=== PATIENT | female | born 1945 | race Caucasian/White ===

== ENCOUNTER → 2016-10-25 | Outpatient (REF) | payer MEDICARE ==
[~2016-10-25] MED LIST: AMBI10TA PO; ASPI81CH PO; COUM10TA PO; LIPI20TA PO; LISI20TA3 PO; LOVE0.4I2 SC; LOVE0.8I SC; METF1000 PO; METO50TA2 PO; NORV5TAB PO; OMEP40CA2 PO; PERCOCET PO; VITA50003 PO; WARF-21 PO; ZOLO100T PO
[2016-10-25 17:51] LABS: INR 3.09
== END ==
LOC: M LABDRAWC 16:53
PROVIDERS: ATTEND Internal Medicine Cardiovascular Disease
DX: I48.0 Paroxysmal atrial fibrillation (principal)

== ENCOUNTER → 2016-11-03 | Outpatient (REF) | payer MEDICARE ==
[2016-11-03 11:27] LABS: MEAN CORPUSCULAR HEMOGLOBIN 27.9 pg (27.0-33.0); MEAN CORPUSCULAR HGB CONC 32.3 g/dl (32.0-36.5); MEAN CORPUSCULAR VOLUME 86.3 fl (80.0-96.0); RED CELL DISTRIBUTION WIDTH 17.8 % (11.5-14.5); WHITE BLOOD COUNT 6.2 K/mm3 (4.0-10.0)
[2016-11-03 11:34] LABS: ANION GAP 8 MEQ/L (8-16); BLOOD UREA NITROGEN 14 MG/DL (7-18); CARBON DIOXIDE LEVEL 30 MEQ/L (21-32); CHLORIDE LEVEL 105 MEQ/L (98-107); GLOMERULAR FILTRATION RATE > 60.0 (>39); GLUCOSE, FASTING 149 MG/DL (83-110); PERCENT SATURATION 16.4 % (13.2-37.4); POTASSIUM SERUM 4.1 MEQ/L (3.5-5.1); SODIUM LEVEL 143 MEQ/L (136-145); TOTAL IRON BINDING CAPACITY 383 UG/DL (250-450)
== END ==
LOC: M SFHCCLAY 08:19
PROVIDERS: ATTEND Family Medicine
DX: E11.9 Type 2 diabetes mellitus without complications (principal); D50.0 Iron deficiency anemia secondary to blood loss (chronic)

== ENCOUNTER → 2016-11-18 | Outpatient (REF) | payer MEDICARE ==
[~2016-11-18] MED LIST changes: +MAGN400T5 PO; +OCUVTAB PO; +SUCR1TA PO; +TRAZ150T14 PO
[2016-11-18 12:28] LABS: INR 3.81
== END ==
LOC: M LABDRAWC 11:36
PROVIDERS: ATTEND Internal Medicine Cardiovascular Disease
DX: I48.0 Paroxysmal atrial fibrillation (principal); Z51.81 Encounter for therapeutic drug level monitoring; Z79.01 Long term (current) use of anticoagulants

== ENCOUNTER → 2016-11-18 | Outpatient (REF) | payer MEDICARE ==
[2016-11-18 12:16] LABS: MEAN CORPUSCULAR HGB CONC 33.2 g/dl (32.0-36.5); MEAN CORPUSCULAR VOLUME 87.3 fl (80.0-96.0); RED CELL DISTRIBUTION WIDTH 16.2 % (11.5-14.5); WHITE BLOOD COUNT 6.5 K/mm3 (4.0-10.0)
[2016-11-18 12:49] LABS: ANION GAP 8 MEQ/L (8-16); BLOOD UREA NITROGEN 12 MG/DL (7-18); CALCIUM LEVEL 9.2 MG/DL (8.8-10.2); CARBON DIOXIDE LEVEL 31 MEQ/L (21-32); CHLORIDE LEVEL 101 MEQ/L (98-107); CREATININE FOR GFR 0.69 MG/DL (0.55-1.02); GLOMERULAR FILTRATION RATE > 60.0 (>39); GLUCOSE, FASTING 119 MG/DL (83-110); POTASSIUM SERUM 4.4 MEQ/L (3.5-5.1); SODIUM LEVEL 140 MEQ/L (136-145)
== END ==
LOC: M SFHCCLAY 11:34
PROVIDERS: ATTEND Family Medicine
DX: Z00.00 Encounter for general adult medical examination without abnormal findings (principal); D50.0 Iron deficiency anemia secondary to blood loss (chronic); E11.9 Type 2 diabetes mellitus without complications; I48.0 Paroxysmal atrial fibrillation; Z51.81 Encounter for therapeutic drug level monitoring; Z79.01 Long term (current) use of anticoagulants

== ENCOUNTER → 2016-11-22 | Outpatient (REF) | payer MEDICARE | LOC: M SFHCCLAY 11:33 | PROVIDERS: ATTEND Family Medicine | DX: Z00.00 Encounter for general adult medical examination without abnormal findings (principal); D50.0 Iron deficiency anemia secondary to blood loss (chronic); E11.9 Type 2 diabetes mellitus without complications ==

== ENCOUNTER → 2016-11-29 | Outpatient (CLI) | payer MEDICARE ==
[~2016-11-29] VITALS: Ht 160 cm; Wt 72.6 kg
[~2016-11-29] MED LIST changes: +LIDOCAINE 2% INJ 100 MG/5 ML SDV (FOR ANES.) As Ordered ONE; +NS 1,000 ML IV SCH; +PROPOFOL 500 MG/50 ML VIAL As Ordered ONE
--- NOTE | 2016-11-29 11:06 | ROOR ---
Patient Name: Jade Rust Procedure Date: 11/29/2016 10:55 AM Date of : 1945 Age: 71 Room: [facility] Gender: Female Note Status: Finalized Procedure: Upper GI endoscopy Indications: Iron deficiency anemia, Heartburn Providers: Aniceto Allan MD Referring MD: Stephen Oden MD Requesting Provider: Medicines: Monitored Anesthesia Care Complications: No immediate complications. Procedure: Pre-Anesthesia Assessment: - The heart rate, respiratory rate, oxygen saturations, blood pressure, adequacy of pulmonary ventilation, and response to care were monitored throughout the procedure. The Endoscope was introduced through the mouth, and advanced to the second part of duodenum. The upper GI endoscopy was accomplished without difficulty. The patient tolerated the procedure well. Findings: The Z-line was variable and was found 38 cm from the incisors. No other significant abnormalities were identified in a careful examination of the stomach. The exam of the duodenum was otherwise normal. Impression: - Z-line variable, 38 cm from the incisors. - No specimens collected. - The examination was otherwise normal. Recommendation: - Patient has a contact number available for emergencies. The signs and symptoms of potential delayed complications were discussed with the patient. Return to normal activities tomorrow. Written discharge instructions were provided to the patient. - High fiber diet. - Discharge patient to home. - Continue present medications. - The findings and recommendations were discussed with the patient's family. Aniceto Allan MD Aniceto Allan MD 11/29/2016 11:06:14 AM This report has been signed electronically. Number of Addenda: 0 Note Initiated On: 11/29/2016 10:55 AM Estimated Blood Loss: Estimated blood loss: none.
--- NOTE | 2016-11-29 11:23 | ROOR ---
Patient Name: Jade Rust Procedure Date: 11/29/2016 10:56 AM Date of : 1945 Age: 71 Room: [facility] Gender: Female Note Status: Finalized Procedure: Colonoscopy to Cecum Indications: High risk colon cancer surveillance: Personal history of colonic polyps, Last colonoscopy: 2012, Last colonoscopy: 2014, Incidental - Iron deficiency anemia Providers: Aniceto Allan MD Referring MD: Stephen Oedn MD Requesting Provider: Medicines: Monitored Anesthesia Care Complications: No immediate complications. Procedure: Pre-Anesthesia Assessment: - The heart rate, respiratory rate, oxygen saturations, blood pressure, adequacy of pulmonary ventilation, and response to care were monitored throughout the procedure. The Colonoscope was introduced through the anus and advanced to the cecum, identified by appendiceal orifice and ileocecal valve. The colonoscopy was performed without difficulty. The patient tolerated the procedure well. The quality of the bowel preparation was excellent. Findings: The perianal and digital rectal examinations were normal. No other significant abnormalities were identified in a careful examination of the remainder of the colon. One small angioectasia without bleeding was found in the cecum. Impression: - One non-bleeding colonic angioectasia. - No specimens collected. - The exam was otherwise normal to the cecum. Recommendation: - Discharge patient to home. - Continue present medications. - Repeat colonoscopy in 5 years for surveillance. - Return to referring physician. - The findings and recommendations were discussed with the patient's family. Aniceto Allan MD Aniceto Allan MD 11/29/2016 11:23:31 AM This report has been signed electronically. Number of Addenda: 0 Note Initiated On: 11/29/2016 10:56 AM Estimated Blood Loss: Estimated blood loss: none.
[2016-11-29 11:42] VITALS: BP 97/63
== END ==
LOC: M OPP 10:11
PROVIDERS: ATTEND Internal Medicine Gastroenterology
DX: Z12.11 Encounter for screening for malignant neoplasm of colon (principal); Z86.010 Personal history of colon polyps; K55.20 Angiodysplasia of colon without hemorrhage; R12 Heartburn; K22.8 Other specified diseases of esophagus; D50.9 Iron deficiency anemia, unspecified; I48.91 Unspecified atrial fibrillation; I35.9 Nonrheumatic aortic valve disorder, unspecified; I05.9 Rheumatic mitral valve disease, unspecified; E11.9 Type 2 diabetes mellitus without complications; M19.90 Unspecified osteoarthritis, unspecified site; F33.9 Major depressive disorder, recurrent, unspecified; J44.9 Chronic obstructive pulmonary disease, unspecified; F17.200 Nicotine dependence, unspecified, uncomplicated; F17.228 Nicotine dependence, chewing tobacco, with other nicotine-induced disorders; Z97.2 Presence of dental prosthetic device (complete) (partial); Z79.899 Other long term (current) drug therapy; Z79.82 Long term (current) use of aspirin; Z79.84 Long term (current) use of oral hypoglycemic drugs; Z79.01 Long term (current) use of anticoagulants
CPT/HCPCS: 43235; 99156; 99157; G0105

== ENCOUNTER → 2016-12-02 | Outpatient (REF) | payer MEDICARE ==
[~2016-12-02] MED LIST changes: -LIDOCAINE 2% INJ 100 MG/5 ML SDV (FOR ANES.) As Ordered ONE; -NS 1,000 ML IV SCH; -PROPOFOL 500 MG/50 ML VIAL As Ordered ONE
[2016-12-02 19:00] LABS: INR 1.36
== END ==
LOC: M LABDRAWC 16:19
PROVIDERS: ATTEND Internal Medicine Cardiovascular Disease
DX: Z79.01 Long term (current) use of anticoagulants (principal)

== ENCOUNTER → 2016-12-14 | Outpatient (REF) | payer MEDICARE ==
[2016-12-14 18:24] LABS: INR 3.22
== END ==
LOC: M LABDRAWC 16:42
PROVIDERS: ATTEND Internal Medicine Cardiovascular Disease

== ENCOUNTER → 2017-01-06 | Outpatient (REF) | payer MEDICARE | LOC: M LABDRAWC 11:20 | PROVIDERS: ATTEND Internal Medicine Cardiovascular Disease | DX: I48.0 Paroxysmal atrial fibrillation (principal); Z51.81 Encounter for therapeutic drug level monitoring; Z79.01 Long term (current) use of anticoagulants ==

== ENCOUNTER → 2017-01-20 | Outpatient (REF) | payer MEDICARE ==
[2017-01-20 17:56] LABS: INR 2.94
== END ==
LOC: M LABDRAWC 16:35 → M LAB REF 16:35
PROVIDERS: ATTEND Internal Medicine Cardiovascular Disease
DX: I48.0 Paroxysmal atrial fibrillation (principal)

== ENCOUNTER → 2017-02-03 | Outpatient (REF) | payer MEDICARE ==
[2017-02-03 17:32] LABS: INR 3.18
== END ==
LOC: M LABDRAWC 16:20
PROVIDERS: ATTEND Internal Medicine Cardiovascular Disease
DX: I48.0 Paroxysmal atrial fibrillation (principal)

== ENCOUNTER → 2017-03-14 | Outpatient (REF) | payer MEDICARE ==
[2017-03-14 17:27] LABS: INR 3.81
== END ==
LOC: M LABDRAWC 16:22
PROVIDERS: ATTEND Internal Medicine Cardiovascular Disease
DX: I48.0 Paroxysmal atrial fibrillation (principal)

== ENCOUNTER → 2017-03-24 | Outpatient (REF) | payer MEDICARE ==
[~2017-03-24] MED LIST changes: -METF1000 PO; +METF10004 PO; -METO50TA2 PO; +METO50TA7 PO; -TRAZ150T14 PO; +TRAZ1TAB14 PO; +VITA1CAP40 PO; -VITA50003 PO
== END ==
LOC: M SFHCCLAY 10:50
PROVIDERS: ATTEND Family Medicine
DX: L85.9 Epidermal thickening, unspecified (principal); L57.0 Actinic keratosis; L90.5 Scar conditions and fibrosis of skin; L83 Acanthosis nigricans

== ENCOUNTER → 2017-03-30 | Outpatient (REF) | payer MEDICARE ==
[~2017-03-30] MED LIST changes: +METF1000 PO; -METF10004 PO; +METO50TA2 PO; -METO50TA7 PO; +TRAZ150T14 PO; -TRAZ1TAB14 PO; -VITA1CAP40 PO; +VITA50003 PO
[2017-03-30 19:20] LABS: INR 4.25
== END ==
LOC: M LABDRAWC 16:45
PROVIDERS: ATTEND Internal Medicine Cardiovascular Disease
DX: I48.0 Paroxysmal atrial fibrillation (principal)

== ENCOUNTER → 2017-04-06 | Outpatient (CLI) | payer MEDICARE ==
[~2017-04-06] MED LIST changes: -METF1000 PO; +METF10004 PO; -METO50TA2 PO; +METO50TA7 PO; -TRAZ150T14 PO; +TRAZ1TAB14 PO; +VITA1CAP40 PO; -VITA50003 PO
--- NOTE | 2017-04-06 10:46 | REP ---
Clinical: Lung screening. History of nicotine dependence. Comparison: None Technique: Axial low-dose noncontrast images from the thoracic inlet to the upper abdomen using lung screening technique. Findings: Significant postsurgical changes involving the right upper lobe and right middle lobe including elements of scarring and interstitial disease as well as partial rib resection and associated pulmonary herniation is appreciated. Subtle ground-glass opacity with interstitial changes and small density in the medial deep left lower lobe with soft tissue component measuring 12 mm identified. No further nodule or mass lesion is identified. No pleural effusion/reaction or pneumothorax. Tracheobronchial tree is patent. Mediastinum demonstrates atherosclerotic changes of the thoracic aorta and coronary arteries with cardiomegaly. Impression: Lung-RADS category 3-S. The above mentioned findings are probably chronic and benign. However no prior examinations are available for comparison and management recommendations include initial 6-month low-dose CT follow-up. Signed by Abraham Mueller MD 04/06/2017 10:38 A
== END ==
LOC: M RAD 10:16
PROVIDERS: ATTEND Family Medicine
DX: Z12.2 Encounter for screening for malignant neoplasm of respiratory organs (principal); F17.210 Nicotine dependence, cigarettes, uncomplicated; J98.4 Other disorders of lung

== ENCOUNTER → 2017-04-13 | Outpatient (REF) | payer MEDICARE ==
[2017-04-13 19:21] LABS: INR 4.13
== END ==
LOC: M LAB REF 17:01
PROVIDERS: ATTEND Internal Medicine Cardiovascular Disease
DX: I48.91 Unspecified atrial fibrillation (principal); Z51.81 Encounter for therapeutic drug level monitoring; Z79.01 Long term (current) use of anticoagulants; Z95.2 Presence of prosthetic heart valve

== ENCOUNTER → 2017-04-27 | Outpatient (REF) | payer MEDICARE ==
[2017-04-27 13:08] LABS: INR 2.91
== END ==
LOC: M LAB REF 12:22
PROVIDERS: ATTEND Internal Medicine Cardiovascular Disease
DX: I48.91 Unspecified atrial fibrillation (principal); Z79.01 Long term (current) use of anticoagulants; Z95.2 Presence of prosthetic heart valve

== ENCOUNTER → 2017-05-30 | Outpatient (REF) | payer MEDICARE ==
[2017-05-30 18:59] LABS: INR 3.83
== END ==
LOC: M LAB REF 16:45
PROVIDERS: ATTEND Internal Medicine Cardiovascular Disease
DX: Z51.81 Encounter for therapeutic drug level monitoring (principal); Z79.01 Long term (current) use of anticoagulants; I48.0 Paroxysmal atrial fibrillation

== ENCOUNTER → 2017-06-08 | Outpatient (REF) | payer MEDICARE ==
[2017-06-08 18:18] LABS: INR 3.15
== END ==
LOC: M LABDRAWC 17:02
PROVIDERS: ATTEND Internal Medicine Cardiovascular Disease
DX: Z79.01 Long term (current) use of anticoagulants (principal)

== ENCOUNTER → 2017-06-10 | Outpatient (REF) | payer MEDICARE ==
[2017-06-10 12:04] LABS: MEAN CORPUSCULAR HEMOGLOBIN 29.4 pg (27.0-33.0); MEAN CORPUSCULAR VOLUME 89.2 fl (80.0-96.0); RED CELL DISTRIBUTION WIDTH 14.6 % (11.5-14.5); WHITE BLOOD COUNT 5.7 K/mm3 (4.0-10.0)
[2017-06-10 12:17] LABS: ALT/SGPT 31 U/L (12-78); ANION GAP 8 MEQ/L (8-16); BLOOD UREA NITROGEN 13 MG/DL (7-18); CALCIUM LEVEL 9.4 MG/DL (8.8-10.2); CARBON DIOXIDE LEVEL 31 MEQ/L (21-32); CHLORIDE LEVEL 103 MEQ/L (98-107); CHOLESTEROL LEVEL 193 MG/DL (<200); CREATININE FOR GFR 0.63 MG/DL (0.55-1.02); GLOMERULAR FILTRATION RATE > 60.0 (>39); GLUCOSE, FASTING 136 MG/DL (83-110); POTASSIUM SERUM 4.6 MEQ/L (3.5-5.1); SODIUM LEVEL 142 MEQ/L (136-145); TRIGLYCERIDES LEVEL 170 MG/DL (<150)
== END ==
LOC: M SFHCCLAY 08:22
PROVIDERS: ATTEND Family Medicine
DX: E11.9 Type 2 diabetes mellitus without complications (principal); I48.2 Chronic atrial fibrillation; Z95.2 Presence of prosthetic heart valve
CPT/HCPCS: 36415; 80048; 80061; 83036; 84460; 85027; G0463

== ENCOUNTER → 2017-06-23 | Outpatient (REF) | payer MEDICARE ==
[2017-06-23 19:34] LABS: INR 3.56
== END ==
LOC: M LABDRAWC 17:56
PROVIDERS: ATTEND Internal Medicine Cardiovascular Disease
DX: I48.91 Unspecified atrial fibrillation (principal); Z51.81 Encounter for therapeutic drug level monitoring; Z79.01 Long term (current) use of anticoagulants

== ENCOUNTER → 2017-08-12 | Outpatient (CLI) | payer MEDICARE ==
--- NOTE | 2017-08-12 13:32 | REPMRS ---
Patient History The patient states she has not had a clinical breast exam in over a year. No known family history of cancer. Benign stereotactic core biopsy. Digital Woman Screen Mammo: August 12, 2017 - Exam #: [id number] Bilateral CC and MLO view(s) were taken. Technologist: Norma Bey, Technologist Prior study comparison: July 22, 2016, digital woman screen mammo performed at [facility]. March 19, 2015, digital woman screen mammo performed at [facility] to [facility]. FINDINGS: There are scattered fibroglandular densities. There has been no change in the appearance of the mammogram from the prior studies. There is a mild amount of scattered fibroglandular density which is fairly symmetric. There is no interval development of dominant mass, architectural distortion, or clustered microcalcification suggestive of malignancy. ASSESSMENT: BI-RADS/ACR category 1 mammogram. Negative. Recommendation Routine screening mammogram in 1 year (for women over age 40). This mammogram was interpreted with the aid of an FDA-approved computer-aided dectection system. Electronically Signed By: Aaron Sellers MD 08/12/17 [id number]
== END ==
LOC: M WHC 10:32
PROVIDERS: ATTEND Family Medicine
DX: Z12.31 Encounter for screening mammogram for malignant neoplasm of breast (principal)

== ENCOUNTER → 2017-08-18 | Outpatient (REF) | payer MEDICARE ==
[2017-08-18 17:52] LABS: INR 2.77
== END ==
LOC: M LAB REF 16:33 → M LABDRAWC 16:33
PROVIDERS: ATTEND Internal Medicine Cardiovascular Disease
DX: Z51.81 Encounter for therapeutic drug level monitoring (principal); Z79.01 Long term (current) use of anticoagulants; I48.91 Unspecified atrial fibrillation

== ENCOUNTER → 2017-09-15 | Outpatient (REF) | payer MEDICARE ==
[2017-09-15 18:32] LABS: INR 2.83
== END ==
LOC: M LABDRAWC 16:28
PROVIDERS: ATTEND Internal Medicine Cardiovascular Disease
DX: I48.91 Unspecified atrial fibrillation (principal); Z79.01 Long term (current) use of anticoagulants

== ENCOUNTER → 2017-10-18 | Outpatient (REF) | payer MEDICARE ==
[2017-10-18 17:54] LABS: INR 3.06
== END ==
LOC: M LABDRAWC 16:23
DX: I48.91 Unspecified atrial fibrillation (principal); Z51.81 Encounter for therapeutic drug level monitoring; Z79.01 Long term (current) use of anticoagulants

== ENCOUNTER → 2017-10-18 | Outpatient (REF) | payer MEDICARE ==
[2017-10-18 17:00] LABS: ALT/SGPT 19 U/L (12-78); CHOLESTEROL LEVEL 110 MG/DL (<200); CHOLESTEROL RISK RATIO 2.972 (<5); HDL CHOLESTEROL 37 MG/DL (>40); NON-HDL-C 73 MG/DL; TRIGLYCERIDES LEVEL 90 MG/DL (<150)
== END ==
LOC: M SFHCCLAY 10:05
DX: E78.2 Mixed hyperlipidemia (principal); I48.91 Unspecified atrial fibrillation; Z51.81 Encounter for therapeutic drug level monitoring; Z79.01 Long term (current) use of anticoagulants
CPT/HCPCS: 84460

== ENCOUNTER → 2017-11-17 | Outpatient (REF) | payer MEDICARE ==
[2017-11-17 16:53] LABS: INR 4.16; PROTHROMBIN TIME 42.4 SECONDS (12.4-14.5)
== END ==
LOC: M LABDRAWC 16:21
DX: I48.91 Unspecified atrial fibrillation (principal); Z51.81 Encounter for therapeutic drug level monitoring; Z79.01 Long term (current) use of anticoagulants
CPT/HCPCS: 85610

== ENCOUNTER → 2017-12-01 | Outpatient (REF) | payer MEDICARE ==
[2017-12-01 17:02] LABS: INR 2.99; PROTHROMBIN TIME 32.4 SECONDS (12.4-14.5)
== END ==
LOC: M LABDRAWC 16:20
DX: I48.91 Unspecified atrial fibrillation (principal)
CPT/HCPCS: 85610

== ENCOUNTER → 2017-12-26 | Outpatient (REF) | payer MEDICARE ==
[2017-12-26 17:18] LABS: INR 3.83; PROTHROMBIN TIME 39.6 SECONDS (12.4-14.5)
== END ==
LOC: M LABDRAWC 16:23
DX: I48.91 Unspecified atrial fibrillation (principal)
CPT/HCPCS: 85610

== ENCOUNTER → 2018-01-26 | Outpatient (REF) | payer MEDICARE ==
[2018-01-26 17:30] LABS: INR 2.69; PROTHROMBIN TIME 29.8 SECONDS (12.4-14.5)
== END ==
LOC: M LABDRAWC 16:41
DX: I48.91 Unspecified atrial fibrillation (principal)
CPT/HCPCS: 85610

== ENCOUNTER → 2018-02-02 | Outpatient (REF) | payer MEDICARE ==
[2018-02-02 17:53] LABS: INR 2.72
== END ==
LOC: M LABDRAWC 17:03
DX: I48.91 Unspecified atrial fibrillation (principal)
CPT/HCPCS: 85610

== ENCOUNTER → 2018-02-16 | Outpatient (REF) | payer MEDICARE ==
[2018-02-16 17:05] LABS: HEMOGLOBIN 9.6 g/dl (12.0-15.5); MEAN CORPUSCULAR HEMOGLOBIN 24.1 pg (27.0-33.0); MEAN CORPUSCULAR VOLUME 77.7 fl (80.0-96.0); PLATELET COUNT, AUTOMATED 381 10^3/uL (150-450); RED BLOOD COUNT 3.99 10^6/uL (4.00-5.40); WHITE BLOOD COUNT 6.7 10^3/uL (4.0-10.0)
[2018-02-16 17:36] LABS: ALBUMIN 3.9 GM/DL (3.2-5.2); ALBUMIN/GLOBULIN RATIO 1.18 (1.00-1.93); ALKALINE PHOSPHATASE 58 U/L (45-117); ALT/SGPT 22 U/L (12-78); ANION GAP 7 MEQ/L (8-16); AST/SGOT 14 U/L (7-37); BILIRUBIN,TOTAL 0.3 MG/DL (0.2-1.0); BLOOD UREA NITROGEN 14 MG/DL (7-18); CALCIUM LEVEL 9.2 MG/DL (8.8-10.2); CARBON DIOXIDE LEVEL 28 MEQ/L (21-32); CHLORIDE LEVEL 103 MEQ/L (98-107); CREATININE FOR GFR 0.84 MG/DL (0.55-1.30); FREE T4 1.19 NG/DL (0.76-1.46); GLOMERULAR FILTRATION RATE > 60.0 (>39); GLUCOSE, FASTING 151 MG/DL (70-100); POTASSIUM SERUM 4.3 MEQ/L (3.5-5.1); SODIUM LEVEL 138 MEQ/L (136-145); TOTAL PROTEIN 7.2 GM/DL (6.4-8.2)
== END ==
LOC: M SFHCCLAY 10:30
DX: F32.1 Major depressive disorder, single episode, moderate (principal); R53.82 Chronic fatigue, unspecified
CPT/HCPCS: 84443

== ENCOUNTER → 2018-02-20 | Outpatient (REF) | payer MEDICARE ==
[2018-02-20 16:43] LABS: IRON (FE) 26 UG/DL (50-170); PERCENT SATURATION 5.1 % (13.2-45.0); TOTAL IRON BINDING CAPACITY 511 UG/DL (250-450)
== END ==
LOC: M SFHCCLAY 11:19
DX: D50.9 Iron deficiency anemia, unspecified (principal)
CPT/HCPCS: 83550

== ENCOUNTER → 2018-02-23 | Outpatient (REF) | payer MEDICARE ==
[2018-02-23 17:28] LABS: INR 3.61; PROTHROMBIN TIME 37.8 SECONDS (12.4-14.5)
== END ==
LOC: M LABDRAWC 16:29
DX: I48.91 Unspecified atrial fibrillation (principal)
CPT/HCPCS: 85610

== ENCOUNTER → 2018-03-06 | Outpatient (REF) | payer MEDICARE ==
[2018-03-06 19:18] LABS: INR 3.18; PROTHROMBIN TIME 34.1 SECONDS (12.4-14.5)
== END ==
LOC: M LABDRAWC 16:50
DX: I48.91 Unspecified atrial fibrillation (principal)
CPT/HCPCS: 85610

== ENCOUNTER → 2018-03-06 | Outpatient (REF) | payer MEDICARE ==
[2018-03-06 17:07] LABS: HEMATOCRIT 31.5 % (36.0-47.0); HEMOGLOBIN 9.5 g/dl (12.0-15.5); MEAN CORPUSCULAR HEMOGLOBIN 23.9 pg (27.0-33.0); MEAN CORPUSCULAR HGB CONC 30.2 g/dl (32.0-36.5); MEAN CORPUSCULAR VOLUME 79.1 fl (80.0-96.0); PLATELET COUNT, AUTOMATED 358 10^3/uL (150-450); RED BLOOD COUNT 3.98 10^6/uL (4.00-5.40); RED CELL DISTRIBUTION WIDTH 18.5 % (11.5-14.5); WHITE BLOOD COUNT 7.6 10^3/uL (4.0-10.0)
[2018-03-06 17:35] LABS: IRON (FE) 62 UG/DL (50-170); PERCENT SATURATION 12.7 % (13.2-45.0); TOTAL IRON BINDING CAPACITY 488 UG/DL (250-450)
== END ==
LOC: M SFHCCLAY 10:51
DX: D50.9 Iron deficiency anemia, unspecified (principal); I48.91 Unspecified atrial fibrillation
CPT/HCPCS: 83550

== ENCOUNTER → 2018-04-10 | Outpatient (REF) | payer MEDICARE ==
[2018-04-10 17:00] LABS: INR 2.67
== END ==
LOC: M LAB REF 16:18
DX: I48.91 Unspecified atrial fibrillation (principal)
CPT/HCPCS: 85610

== ENCOUNTER → 2018-05-25 | Outpatient (REF) | payer MEDICARE ==
[2018-05-25 19:02] LABS: INR 4.81; PROTHROMBIN TIME 46.2 SECONDS (12.1-14.4)
== END ==
LOC: M LABDRAWC 16:18
DX: I48.91 Unspecified atrial fibrillation (principal)
CPT/HCPCS: 85610

== ENCOUNTER → 2018-06-12 | Outpatient (REF) | payer MEDICARE ==
[2018-06-12 11:37] LABS: HEMATOCRIT 37.7 % (36.0-47.0); HEMOGLOBIN 11.9 g/dl (12.0-15.5); MEAN CORPUSCULAR HEMOGLOBIN 25.9 pg (27.0-33.0); MEAN CORPUSCULAR HGB CONC 31.6 g/dl (32.0-36.5); MEAN CORPUSCULAR VOLUME 82.1 fl (80.0-96.0); PLATELET COUNT, AUTOMATED 295 10^3/uL (150-450); RED BLOOD COUNT 4.59 10^6/uL (4.00-5.40); RED CELL DISTRIBUTION WIDTH 19.7 % (11.5-14.5)
[2018-06-12 19:32] LABS: MALB URINE SIEMENS 34.5 MG/L
[2018-06-12 20:14] LABS: ALBUMIN 4.3 GM/DL (3.2-5.2); ALKALINE PHOSPHATASE 62 U/L (45-117); ALT/SGPT 21 U/L (12-78); ANION GAP 10 MEQ/L (8-16); AST/SGOT 18 U/L (7-37); BILIRUBIN,TOTAL 0.4 MG/DL (0.2-1.0); BLOOD UREA NITROGEN 10 MG/DL (7-18); CALCIUM LEVEL 9.4 MG/DL (8.8-10.2); CARBON DIOXIDE LEVEL 28 MEQ/L (21-32); CHLORIDE LEVEL 104 MEQ/L (98-107); CREATININE FOR GFR 0.71 MG/DL (0.55-1.30); GLOMERULAR FILTRATION RATE > 60.0 (>39); IRON (FE) 127 UG/DL (50-170); POTASSIUM SERUM 4.3 MEQ/L (3.5-5.1); SODIUM LEVEL 142 MEQ/L (136-145); TOTAL PROTEIN 7.4 GM/DL (6.4-8.2)
[2018-06-13 01:07] LABS: ESTIMATED AVERAGE GLUCOSE 154 MG/DL (60-110)
[2018-06-13 04:07] LABS: CREATININE, URINE 99.7 MG/DL
[2018-06-13 04:10] LABS: MAU/CREAT RATIO 0.3 MCG/MG (0.0-30.0)
[2018-06-13 04:25] LABS: ALBUMIN/GLOBULIN RATIO 1.39 (1.00-1.93)
[2018-06-13 04:34] LABS: GLUCOSE, FASTING 129 MG/DL (70-100)
== END ==
LOC: M SFHCCLAY 09:01
DX: J44.9 Chronic obstructive pulmonary disease, unspecified (principal); I48.2 Chronic atrial fibrillation; E11.9 Type 2 diabetes mellitus without complications; D50.0 Iron deficiency anemia secondary to blood loss (chronic)
CPT/HCPCS: 83540

== ENCOUNTER → 2018-06-16 | Outpatient (CLI) | payer MEDICARE | LOC: M RAD 10:19 | DX: Z12.2 Encounter for screening for malignant neoplasm of respiratory organs (principal); F17.210 Nicotine dependence, cigarettes, uncomplicated; J44.9 Chronic obstructive pulmonary disease, unspecified | CPT/HCPCS: G0297 ==

== ENCOUNTER → 2018-06-19 | Outpatient (REF) | payer MEDICARE ==
[2018-06-19 17:25] LABS: INR 2.79
== END ==
LOC: M LABDRAWC 16:31
DX: I48.91 Unspecified atrial fibrillation (principal)
CPT/HCPCS: 85610

== ENCOUNTER → 2018-07-18 | Outpatient (REF) | payer MEDICARE ==
[2018-07-18 18:01] LABS: INR 3.35; PROTHROMBIN TIME 34.7 SECONDS (12.1-14.4)
== END ==
LOC: M LABDRAWC 16:10
DX: I48.91 Unspecified atrial fibrillation (principal)
CPT/HCPCS: 85610

== ENCOUNTER → 2018-08-16 | Outpatient (REF) | payer MEDICARE | LOC: M LABDRAWC 16:13 | DX: Z95.2 Presence of prosthetic heart valve (principal); I48.0 Paroxysmal atrial fibrillation | CPT/HCPCS: 85610 ==

== ENCOUNTER → 2018-08-22 | Outpatient (CLI) | payer MEDICARE | LOC: M WHC 09:10 | DX: Z12.31 Encounter for screening mammogram for malignant neoplasm of breast (principal) | CPT/HCPCS: 77067 ==

== ENCOUNTER → 2018-09-07 | Outpatient (REF) | payer MEDICARE ==
[2018-09-07 17:13] LABS: INR 1.56; PROTHROMBIN TIME 18.9 SECONDS (12.1-14.4)
== END ==
LOC: M LAB REF 16:28
DX: Z95.2 Presence of prosthetic heart valve (principal); I48.0 Paroxysmal atrial fibrillation
CPT/HCPCS: 85610

== ENCOUNTER → 2018-09-14 | Outpatient (REF) | payer MEDICARE ==
[2018-09-14 18:28] LABS: INR 3.13; PROTHROMBIN TIME 32.9 SECONDS (12.1-14.4)
== END ==
LOC: M LABDRWCV 16:20
DX: I48.0 Paroxysmal atrial fibrillation (principal); Z90.2 Acquired absence of lung [part of]
CPT/HCPCS: 85610

== ENCOUNTER → 2018-10-11 | Outpatient (REF) | payer MEDICARE ==
[~2018-10-11] MED LIST changes: -VITA1CAP40 PO; +VITA50005 PO
[2018-10-11 17:45] LABS: INR 3.34; PROTHROMBIN TIME 34.7 SECONDS (12.1-14.4)
== END ==
LOC: M LABDRAWC 16:58
PROVIDERS: ATTEND Internal Medicine Cardiovascular Disease
DX: I48.0 Paroxysmal atrial fibrillation (principal); Z95.2 Presence of prosthetic heart valve

== ENCOUNTER → 2018-11-10 | Outpatient (REF) | payer MEDICARE ==
[2018-11-10 16:39] LABS: INR 2.75; PROTHROMBIN TIME 29.7 SECONDS (12.1-14.4)
== END ==
LOC: M LABDRAWC 16:05
PROVIDERS: ATTEND Internal Medicine Cardiovascular Disease
DX: Z95.2 Presence of prosthetic heart valve (principal); I48.0 Paroxysmal atrial fibrillation

== ENCOUNTER → 2018-11-10 | Outpatient (REF) | payer MEDICARE ==
[2018-11-10 16:20] LABS: HEMATOCRIT 34.8 % (36.0-47.0); HEMOGLOBIN 10.8 g/dl (12.0-15.5); MEAN CORPUSCULAR VOLUME 83.9 fl (80.0-96.0); PLATELET COUNT, AUTOMATED 308 10^3/uL (150-450); RED BLOOD COUNT 4.15 10^6/uL (4.00-5.40); WHITE BLOOD COUNT 6.2 10^3/uL (4.0-10.0)
[2018-11-10 16:54] LABS: HEMOGLOBIN A1c 7.6 %
[2018-11-10 17:02] LABS: BLOOD UREA NITROGEN 13 MG/DL (7-18); CALCIUM LEVEL 8.6 MG/DL (8.8-10.2); CARBON DIOXIDE LEVEL 31 MEQ/L (21-32); CHLORIDE LEVEL 103 MEQ/L (98-107); CREATININE FOR GFR 0.73 MG/DL (0.55-1.30); GLOMERULAR FILTRATION RATE > 60.0 (>39); GLUCOSE, FASTING 141 MG/DL (70-100); IRON (FE) 26 UG/DL (50-170); POTASSIUM SERUM 4.3 MEQ/L (3.5-5.1); SODIUM LEVEL 140 MEQ/L (136-145)
== END ==
LOC: M SFHCCLAY 10:21
PROVIDERS: ATTEND Family Medicine
DX: D50.9 Iron deficiency anemia, unspecified (principal); E11.9 Type 2 diabetes mellitus without complications; I48.0 Paroxysmal atrial fibrillation; Z95.2 Presence of prosthetic heart valve

== ENCOUNTER → 2018-12-27 | Outpatient (REF) | payer MEDICARE ==
[2018-12-27 16:57] LABS: INR 3.77; PROTHROMBIN TIME 38.1 SECONDS (12.1-14.4)
== END ==
LOC: M LABDRAWC 16:05
PROVIDERS: ATTEND Internal Medicine Cardiovascular Disease
DX: Z95.2 Presence of prosthetic heart valve (principal); I48.0 Paroxysmal atrial fibrillation

== ENCOUNTER → 2019-01-31 | Outpatient (REF) | payer MEDICARE ==
[~2019-01-31] MED LIST changes: -ASPI81CH PO; +ASPI81CH49 PO
[2019-01-31 16:58] LABS: INR 3.42; PROTHROMBIN TIME 35.3 SECONDS (12.1-14.4)
== END ==
LOC: M LABDRAWC 16:22
PROVIDERS: ATTEND Internal Medicine Cardiovascular Disease
DX: Z95.2 Presence of prosthetic heart valve (principal); I48.0 Paroxysmal atrial fibrillation

== ENCOUNTER → 2019-04-03 | Outpatient (REF) | payer MEDICARE ==
[2019-04-03 18:14] LABS: INR 3.08; PROTHROMBIN TIME 31.7 SECONDS (11.8-14.0)
== END ==
LOC: M LABDRAWC 16:11
PROVIDERS: ATTEND Internal Medicine Cardiovascular Disease
DX: Z95.2 Presence of prosthetic heart valve (principal); I48.0 Paroxysmal atrial fibrillation

== ENCOUNTER → 2019-04-23 | Outpatient (CLI) | payer MEDICARE ==
[~2019-04-23] MED LIST changes: +GASTROGRAFIN SOLUTION 30ML (Q9963) As Ordered ONE; +ISOVUE-370 76% 100ML VIAL (Q9967) As Ordered ONE; +LISI20TA20 PO; -LISI20TA3 PO; -OMEP40CA2 PO; +OMEP40CA97 PO
[2019-04-23 14:55] LABS: PROTHROMBIN TIME 59.6 SECONDS (11.8-14.0)
[2019-04-23 15:05] LABS: INR 6.77
[2019-04-23 15:17] LABS: ALBUMIN 4.1 GM/DL (3.2-5.2); ALT/SGPT 17 U/L (12-78); BILIRUBIN,TOTAL 0.8 MG/DL (0.2-1.0); BLOOD UREA NITROGEN 9 MG/DL (7-18); CALCIUM LEVEL 9.7 MG/DL (8.8-10.2); CARBON DIOXIDE LEVEL 33 MEQ/L (21-32); CHLORIDE LEVEL 95 MEQ/L (98-107); CREATININE FOR GFR 0.69 MG/DL (0.55-1.30); GLOMERULAR FILTRATION RATE > 60.0 (>39); GLUCOSE, FASTING 137 MG/DL (70-100); POTASSIUM SERUM 3.5 MEQ/L (3.5-5.1); SODIUM LEVEL 134 MEQ/L (136-145); TOTAL PROTEIN 8.5 GM/DL (6.4-8.2)
[2019-04-23 15:24] LABS: BASO % 0.3 % (0.0-1.0); EOS % 0.3 % (0.0-3.0); HEMATOCRIT 40.7 % (36.0-47.0); HEMOGLOBIN 13.8 g/dl (12.0-15.5); LYMPH # 0.7 10^3/uL (1.5-4.5); LYMPH % 5.5 % (24.0-44.0); MEAN CORPUSCULAR HEMOGLOBIN 29.9 pg (27.0-33.0); MEAN CORPUSCULAR HGB CONC 33.9 g/dl (32.0-36.5); MEAN CORPUSCULAR VOLUME 88.1 fl (80.0-96.0); MONO # 1.3 10^3/uL (0.0-0.8); NEUTROPHILS # 9.7 10^3/uL (1.8-7.7); NEUTROPHILS % 82.5 % (36.0-66.0); PLATELET COUNT, AUTOMATED 275 10^3/uL (150-450); RED BLOOD COUNT 4.62 10^6/uL (4.00-5.40); WHITE BLOOD COUNT 11.8 10^3/uL (4.0-10.0)
--- NOTE | 2019-04-23 16:50 | REP ---
CT of the abdomen and pelvis with IV and bowel contrast for right lower quadrant abdominal pain: Comparison is 01/09/2013. Pelvis: The appendix has a normal appearance. There is a hysterectomy. Vaginal cuff and adnexa are unremarkable. The bladder is unremarkable. There is no adenopathy or ascites. There is wall thickening of the sigmoid colon, compatible with colitis in the appropriate clinical setting. There is no ascites or adenopathy. Abdomen: The visualized lung orantes are unremarkable. The hepatic parenchyma is unremarkable. There is a cholecystectomy. The pancreas and spleen are unremarkable. The adrenals are unremarkable. There are two simple right renal Bosniak type 1 cysts, not significantly changed, one in the lower pole measuring 40 mm and in the upper pole measuring 21 mm. The The abdominal aorta is unremarkable except for calcified atheroma. The bowel and mesentery are unremarkable except for findings in the sigmoid colon compatible with colitis in the appropriate clinical setting. Impression: The appendix is unremarkable. The uterus, adnexa and bladder are unremarkable. There is wall thickening of the sigmoid colon compatible with colitis in the appropriate clinical setting. Cholecystectomy. Simple cysts in the right kidney. Electronically Signed by Chepe Pollard MD 04/23/2019 04:41 P
== END ==
LOC: M LAB 14:09
PROVIDERS: ATTEND Family Medicine
DX: N28.1 Cyst of kidney, acquired (principal); R10.31 Right lower quadrant pain; Z79.01 Long term (current) use of anticoagulants; Z90.49 Acquired absence of other specified parts of digestive tract
CPT/HCPCS: 36415; 74177; 80053; 85025; 85610; G0463; Q9963; Q9967

== ENCOUNTER → 2019-04-24 | Outpatient (REF) | payer MEDICARE ==
[~2019-04-24] MED LIST changes: -GASTROGRAFIN SOLUTION 30ML (Q9963) As Ordered ONE; -ISOVUE-370 76% 100ML VIAL (Q9967) As Ordered ONE; -LISI20TA20 PO; +LISI20TA3 PO; +OMEP40CA2 PO; -OMEP40CA97 PO
[2019-04-24 17:30] LABS: BASO % 0.2 % (0.0-1.0); EOS % 0.2 % (0.0-3.0); HEMATOCRIT 39.3 % (36.0-47.0); HEMOGLOBIN 13.4 g/dl (12.0-15.5); LYMPH # 0.6 10^3/uL (1.5-4.5); LYMPH % 5.3 % (24.0-44.0); MEAN CORPUSCULAR HGB CONC 34.1 g/dl (32.0-36.5); MEAN CORPUSCULAR VOLUME 88.1 fl (80.0-96.0); MONO # 1.6 10^3/uL (0.0-0.8); MONO % 13.6 % (0.0-5.0); NEUTROPHILS # 9.6 10^3/uL (1.8-7.7); NEUTROPHILS % 80.3 % (36.0-66.0); PLATELET COUNT, AUTOMATED 280 10^3/uL (150-450); RED BLOOD COUNT 4.46 10^6/uL (4.00-5.40)
[2019-04-24 17:43] LABS: ALBUMIN 3.7 GM/DL (3.2-5.2); ALT/SGPT 13 U/L (12-78); BILIRUBIN,TOTAL 0.9 MG/DL (0.2-1.0); BLOOD UREA NITROGEN 10 MG/DL (7-18); CARBON DIOXIDE LEVEL 30 MEQ/L (21-32); CHLORIDE LEVEL 93 MEQ/L (98-107); CREATININE FOR GFR 0.96 MG/DL (0.55-1.30); GLOMERULAR FILTRATION RATE > 60.0 (>39); GLUCOSE, FASTING 146 MG/DL (70-100); POTASSIUM SERUM 3.7 MEQ/L (3.5-5.1); SODIUM LEVEL 132 MEQ/L (136-145); TOTAL PROTEIN 7.2 GM/DL (6.4-8.2)
[2019-04-24 17:47] LABS: PROTHROMBIN TIME 52.6 SECONDS (11.8-14.0)
[2019-04-24 19:27] LABS: INR 5.79
== END ==
LOC: M SFHCCLAY 11:48
PROVIDERS: ATTEND Family Medicine
DX: R10.31 Right lower quadrant pain (principal); Z79.01 Long term (current) use of anticoagulants

== ENCOUNTER → 2019-04-26 | Outpatient (REF) | payer MEDICARE ==
[2019-04-26 12:07] LABS: BASO % 0.4 % (0.0-1.0); EOS # 0.2 10^3/uL (0.0-0.50); EOS % 1.8 % (0.0-3.0); HEMOGLOBIN 13.7 g/dl (12.0-15.5); LYMPH # 0.7 10^3/uL (1.5-4.5); LYMPH % 8.3 % (24.0-44.0); MEAN CORPUSCULAR HEMOGLOBIN 30.2 pg (27.0-33.0); MEAN CORPUSCULAR HGB CONC 34.3 g/dl (32.0-36.5); MEAN CORPUSCULAR VOLUME 88.3 fl (80.0-96.0); MONO # 0.9 10^3/uL (0.0-0.8); MONO % 10.2 % (0.0-5.0); NEUTROPHILS # 6.6 10^3/uL (1.8-7.7); NEUTROPHILS % 78.9 % (36.0-66.0); PLATELET COUNT, AUTOMATED 334 10^3/uL (150-450); RED BLOOD COUNT 4.53 10^6/uL (4.00-5.40); WHITE BLOOD COUNT 8.4 10^3/uL (4.0-10.0)
[2019-04-26 12:20] LABS: INR 2.35; PROTHROMBIN TIME 25.6 SECONDS (11.8-14.0)
== END ==
LOC: M SFHCCLAY 09:04
PROVIDERS: ATTEND Family Medicine
DX: K52.9 Noninfective gastroenteritis and colitis, unspecified (principal); D50.9 Iron deficiency anemia, unspecified; D68.2 Hereditary deficiency of other clotting factors

== ENCOUNTER → 2019-04-30 | Outpatient (REF) | payer MEDICARE ==
[~2019-04-30] MED LIST changes: +LISI20TA20 PO; -LISI20TA3 PO; -OMEP40CA2 PO; +OMEP40CA97 PO
[2019-04-30 17:04] LABS: BLOOD UREA NITROGEN 12 MG/DL (7-18); CALCIUM LEVEL 9.6 MG/DL (8.8-10.2); CARBON DIOXIDE LEVEL 31 MEQ/L (21-32); CHLORIDE LEVEL 99 MEQ/L (98-107); CREATININE FOR GFR 0.74 MG/DL (0.55-1.30); GLOMERULAR FILTRATION RATE > 60.0 (>39); GLUCOSE, FASTING 112 MG/DL (70-100); POTASSIUM SERUM 4.5 MEQ/L (3.5-5.1); SODIUM LEVEL 137 MEQ/L (136-145)
[2019-04-30 17:06] LABS: HEMOGLOBIN 12.7 g/dl (12.0-15.5); MEAN CORPUSCULAR HGB CONC 32.6 g/dl (32.0-36.5); PLATELET COUNT, AUTOMATED 384 10^3/uL (150-450); RED BLOOD COUNT 4.38 10^6/uL (4.00-5.40); WHITE BLOOD COUNT 7.6 10^3/uL (4.0-10.0)
[2019-04-30 17:24] LABS: INR 2.36; PROTHROMBIN TIME 25.6 SECONDS (11.8-14.0)
== END ==
LOC: M SFHCCLAY 11:15
PROVIDERS: ATTEND Family Medicine
DX: K52.9 Noninfective gastroenteritis and colitis, unspecified (principal); Z79.01 Long term (current) use of anticoagulants
CPT/HCPCS: 36415; 80048; 85027; 85610; G0463

== ENCOUNTER → 2019-05-28 | Outpatient (REF) | payer MEDICARE ==
[2019-05-28 17:43] LABS: INR 2.41; PROTHROMBIN TIME 26.1 SECONDS (11.8-14.0)
== END ==
LOC: M LABDRAWC 16:20 → M LABDRWCV 16:20
PROVIDERS: ATTEND Internal Medicine Cardiovascular Disease
DX: Z95.2 Presence of prosthetic heart valve (principal); I48.0 Paroxysmal atrial fibrillation

== ENCOUNTER → 2019-06-26 | Outpatient (REF) | payer MEDICARE ==
[~2019-06-26] MED LIST changes: +OMEP40CA2 PO; -OMEP40CA97 PO
[2019-06-26 13:25] LABS: PROTHROMBIN TIME 47.4 SECONDS (11.8-14.0)
[2019-06-26 14:16] LABS: INR 5.09
== END ==
LOC: M LABDRAWC 12:24
PROVIDERS: ATTEND Internal Medicine Cardiovascular Disease
DX: I48.0 Paroxysmal atrial fibrillation (principal); Z95.2 Presence of prosthetic heart valve

== ENCOUNTER → 2019-07-04 | Outpatient (REF) | payer MEDICARE ==
[2019-07-04 17:53] LABS: INR 3.11; PROTHROMBIN TIME 31.9 SECONDS (11.8-14.0)
== END ==
LOC: M LABDRAWC 16:31
PROVIDERS: ATTEND Internal Medicine Cardiovascular Disease
DX: Z95.2 Presence of prosthetic heart valve (principal); I48.0 Paroxysmal atrial fibrillation

== ENCOUNTER → 2019-08-02 | Outpatient (REF) | payer MEDICARE ==
[~2019-08-02] MED LIST changes: -OMEP40CA2 PO; +OMEP40CA97 PO
[2019-08-02 12:23] LABS: HEMATOCRIT 38.3 % (36.0-47.0); HEMOGLOBIN 12.1 g/dl (12.0-15.5); MEAN CORPUSCULAR HEMOGLOBIN 29.4 pg (27.0-33.0); MEAN CORPUSCULAR HGB CONC 31.6 g/dl (32.0-36.5); MEAN CORPUSCULAR VOLUME 93.2 fl (80.0-96.0); PLATELET COUNT, AUTOMATED 276 10^3/uL (150-450); RED BLOOD COUNT 4.11 10^6/uL (4.00-5.40); WHITE BLOOD COUNT 7.1 10^3/uL (4.0-10.0)
[2019-08-02 12:34] LABS: ALBUMIN 3.6 GM/DL (3.2-5.2); ALT/SGPT 23 U/L (12-78); BILIRUBIN,TOTAL 0.4 MG/DL (0.2-1.0); BLOOD UREA NITROGEN 13 MG/DL (7-18); CALCIUM LEVEL 8.9 MG/DL (8.8-10.2); CARBON DIOXIDE LEVEL 31 MEQ/L (21-32); CHLORIDE LEVEL 101 MEQ/L (98-107); GLOMERULAR FILTRATION RATE > 60.0 (>39); GLUCOSE, FASTING 179 MG/DL (70-100); POTASSIUM SERUM 4.1 MEQ/L (3.5-5.1); SODIUM LEVEL 139 MEQ/L (136-145); TOTAL PROTEIN 6.8 GM/DL (6.4-8.2)
[2019-08-02 13:26] LABS: HEMOGLOBIN A1c 7.6 %
== END ==
LOC: M SFHCCLAY 08:29
PROVIDERS: ATTEND Family Medicine
DX: J44.9 Chronic obstructive pulmonary disease, unspecified (principal); I48.20 Chronic atrial fibrillation, unspecified; Z79.01 Long term (current) use of anticoagulants; E11.9 Type 2 diabetes mellitus without complications
CPT/HCPCS: 80053; 83036; 84443; 85027; 85610; 90682; G0008; G0463

== ENCOUNTER → 2019-08-02 | Outpatient (REF) | payer MEDICARE ==
[2019-08-02 12:35] LABS: PROTHROMBIN TIME 54.5 SECONDS (11.8-14.0)
[2019-08-02 13:45] LABS: INR 6.06
== END ==
LOC: M LABDRAWC 08:34
PROVIDERS: ATTEND Internal Medicine Cardiovascular Disease
DX: I48.0 Paroxysmal atrial fibrillation (principal); Z95.2 Presence of prosthetic heart valve

== ENCOUNTER → 2019-08-06 | Outpatient (REF) | payer MEDICARE ==
[2019-08-06 13:25] LABS: INR 1.72; PROTHROMBIN TIME 19.9 SECONDS (11.8-14.0)
== END ==
LOC: M LABDRAWC 09:20
PROVIDERS: ATTEND Internal Medicine Cardiovascular Disease
DX: I48.0 Paroxysmal atrial fibrillation (principal); Z95.2 Presence of prosthetic heart valve

== ENCOUNTER → 2019-09-03 | Outpatient (REF) | payer MEDICARE ==
[2019-09-03 18:12] LABS: INR 1.56; PROTHROMBIN TIME 18.4 SECONDS (11.8-14.0)
== END ==
LOC: M LABDRAWC 16:05
PROVIDERS: ATTEND Internal Medicine Cardiovascular Disease
DX: Z95.2 Presence of prosthetic heart valve (principal); I48.0 Paroxysmal atrial fibrillation

== ENCOUNTER → 2019-09-10 | Outpatient (REF) | payer MEDICARE ==
[2019-09-10 16:36] LABS: INR 2.87
== END ==
LOC: M LABDRAWC 16:05
PROVIDERS: ATTEND Internal Medicine Cardiovascular Disease
DX: I10 Essential (primary) hypertension (principal); E11.9 Type 2 diabetes mellitus without complications; E78.5 Hyperlipidemia, unspecified; Z79.01 Long term (current) use of anticoagulants; Z79.82 Long term (current) use of aspirin; Z79.899 Other long term (current) drug therapy

== ENCOUNTER → 2019-09-24 | Outpatient (REF) | payer MEDICARE ==
[2019-09-24 17:40] LABS: INR 3.24
== END ==
LOC: M LABDRAWC 16:33
PROVIDERS: ATTEND Internal Medicine Cardiovascular Disease
DX: Z95.2 Presence of prosthetic heart valve (principal); I48.0 Paroxysmal atrial fibrillation

== ENCOUNTER → 2019-10-08 | Outpatient (REF) | payer MEDICARE ==
[2019-10-08 17:12] LABS: INR 2.85; PROTHROMBIN TIME 29.8 SECONDS (11.8-14.0)
== END ==
LOC: M LABDRAWC 16:21
PROVIDERS: ATTEND Internal Medicine Cardiovascular Disease
DX: Z95.2 Presence of prosthetic heart valve (principal); I48.0 Paroxysmal atrial fibrillation

== ENCOUNTER → 2019-10-30 | Outpatient (REF) | payer MEDICARE ==
[2019-10-30 17:52] LABS: INR 2.89; PROTHROMBIN TIME 30.2 SECONDS (11.8-14.0)
== END ==
LOC: M LABDRAWC 16:29
PROVIDERS: ATTEND Internal Medicine Cardiovascular Disease
DX: I48.0 Paroxysmal atrial fibrillation (principal); Z95.2 Presence of prosthetic heart valve

== ENCOUNTER → 2019-11-22 | Outpatient (REF) | payer MEDICARE ==
[2019-11-22 16:43] LABS: CHOLESTEROL RISK RATIO 3.023 (<5)
== END ==
LOC: M LABDRAWC 16:17
PROVIDERS: ATTEND Nurse Practitioner Family
DX: E78.49 Other hyperlipidemia (principal); I48.0 Paroxysmal atrial fibrillation; Z95.2 Presence of prosthetic heart valve

== ENCOUNTER → 2019-11-22 | Outpatient (REF) | payer MEDICARE ==
[2019-11-22 16:47] LABS: INR 2.06
== END ==
LOC: M LABDRAWC 16:18
PROVIDERS: ATTEND Internal Medicine Cardiovascular Disease
DX: I48.0 Paroxysmal atrial fibrillation (principal); Z95.2 Presence of prosthetic heart valve

== ENCOUNTER → 2019-12-04 | Outpatient (REF) | payer MEDICARE ==
[2019-12-04 17:19] LABS: INR 2.63
== END ==
LOC: M LABDRAWC 16:02
PROVIDERS: ATTEND Internal Medicine Cardiovascular Disease
DX: Z95.2 Presence of prosthetic heart valve (principal); I48.0 Paroxysmal atrial fibrillation

== ENCOUNTER → 2020-01-01 | Outpatient (REF) | payer MEDICARE ==
[2020-01-01 16:31] LABS: INR 2.41; PROTHROMBIN TIME 26.1 SECONDS (11.8-14.0)
== END ==
LOC: M LABDRAWC 15:58
PROVIDERS: ATTEND Internal Medicine Cardiovascular Disease
DX: Z95.2 Presence of prosthetic heart valve (principal); I48.0 Paroxysmal atrial fibrillation

== ENCOUNTER → 2020-01-17 | Outpatient (REF) | payer MEDICARE ==
[2020-01-17 16:45] LABS: INR 2.56; PROTHROMBIN TIME 27.4 SECONDS (11.8-14.0)
== END ==
LOC: M LABDRAWC 15:55
PROVIDERS: ATTEND Internal Medicine Cardiovascular Disease
DX: Z95.2 Presence of prosthetic heart valve (principal); I48.0 Paroxysmal atrial fibrillation

== ENCOUNTER → 2020-02-07 | Outpatient (REF) | payer MEDICARE ==
[2020-02-07 16:56] LABS: INR 2.47; PROTHROMBIN TIME 26.6 SECONDS (11.8-14.0)
== END ==
LOC: M LABDRAWC 15:51
PROVIDERS: ATTEND Internal Medicine Cardiovascular Disease
DX: I48.91 Unspecified atrial fibrillation (principal)

== ENCOUNTER → 2020-02-14 | Outpatient (REF) | payer MEDICARE ==
[2020-02-14 16:44] LABS: INR 2.53; PROTHROMBIN TIME 27.1 SECONDS (11.8-14.0)
== END ==
LOC: M LABDRAWC 15:50
PROVIDERS: ATTEND Internal Medicine Cardiovascular Disease
DX: I48.91 Unspecified atrial fibrillation (principal)

== ENCOUNTER → 2020-02-21 | Outpatient (REF) | payer MEDICARE ==
[2020-02-21 12:12] LABS: BLOOD UREA NITROGEN 13 MG/DL (7-18); CARBON DIOXIDE LEVEL 32 MEQ/L (21-32); CHLORIDE LEVEL 102 MEQ/L (98-107); CREATININE FOR GFR 0.81 MG/DL (0.55-1.30); GLOMERULAR FILTRATION RATE > 60.0 (>39); GLUCOSE, FASTING 139 MG/DL (70-100); SODIUM LEVEL 139 MEQ/L (136-145)
[2020-02-21 13:36] LABS: HEMOGLOBIN A1c 6.8 %
== END ==
LOC: M SFHCCLAY 08:29
PROVIDERS: ATTEND Family Medicine
DX: E11.9 Type 2 diabetes mellitus without complications (principal); I48.91 Unspecified atrial fibrillation

== ENCOUNTER → 2020-02-21 | Outpatient (REF) | payer MEDICARE ==
[2020-02-21 12:18] LABS: INR 3.06; PROTHROMBIN TIME 31.6 SECONDS (11.8-14.0)
== END ==
LOC: M LABDRAWC 11:20
PROVIDERS: ATTEND Internal Medicine Cardiovascular Disease
DX: I48.91 Unspecified atrial fibrillation (principal)

== ENCOUNTER → 2020-03-20 | Outpatient (REF) | payer MEDICARE ==
[2020-03-20 16:49] LABS: INR 2.72; PROTHROMBIN TIME 28.7 SECONDS (11.8-14.0)
== END ==
LOC: M LABDRAWC 15:50
PROVIDERS: ATTEND Internal Medicine Cardiovascular Disease
DX: I48.91 Unspecified atrial fibrillation (principal)

== ENCOUNTER → 2020-04-01 | Outpatient (CLI) | payer MEDICARE ==
--- NOTE | 2020-04-01 11:39 | REP ---
Clinical: Left hip pain. Technique: AP and lateral views of the left hip. Comparison: 04/29/2016 Findings: Moderate degenerative changes include periarticular sclerosis, subchondral heterogeneity with subtle cystic changes and marginal osteophyte formation along the acetabular and femoral head. Joint space narrowing is also appreciated. No acute fracture dislocation. Impression: Moderate osteoarthritic degenerative changes. Findings have progressed since 2015. Electronically Signed by Abraham Mueller MD 04/01/2020 11:30 A
== END ==
LOC: M CLY 11:08
PROVIDERS: ATTEND Family Medicine
DX: M16.12 Unilateral primary osteoarthritis, left hip (principal); M25.552 Pain in left hip

== ENCOUNTER → 2020-06-20 | Outpatient (REF) | payer MEDICARE ==
[2020-06-20 18:34] LABS: INR 2.3; PROTHROMBIN TIME 25.8 SECONDS (12.5-14.3)
== END ==
LOC: M LABDRAWC 18:04
PROVIDERS: ATTEND Internal Medicine Cardiovascular Disease
DX: I48.91 Unspecified atrial fibrillation (principal)

== ENCOUNTER → 2020-07-15 | Outpatient (REF) | payer MEDICARE ==
[2020-07-15 16:20] LABS: INR 2.54; PROTHROMBIN TIME 27.9 SECONDS (12.5-14.3)
== END ==
LOC: M LABDRAWC 15:48
PROVIDERS: ATTEND Internal Medicine Cardiovascular Disease
DX: I48.91 Unspecified atrial fibrillation (principal)

== ENCOUNTER → 2020-07-15 | Outpatient (REF) | payer MEDICARE ==
[2020-07-15 16:09] LABS: HEMATOCRIT 42.2 % (36.0-47.0); HEMOGLOBIN 13.2 g/dl (12.0-15.5); MEAN CORPUSCULAR HEMOGLOBIN 28.8 pg (27.0-33.0); MEAN CORPUSCULAR HGB CONC 31.3 g/dl (32.0-36.5); MEAN CORPUSCULAR VOLUME 92.1 fl (80.0-96.0); PLATELET COUNT, AUTOMATED 268 10^3/uL (150-450); RED BLOOD COUNT 4.58 10^6/uL (4.00-5.40); WHITE BLOOD COUNT 6.1 10^3/uL (4.0-10.0)
[2020-07-15 16:32] LABS: HEMOGLOBIN A1c 6.9 %
[2020-07-15 16:41] LABS: BLOOD UREA NITROGEN 15 MG/DL (7-18); CALCIUM LEVEL 9.6 MG/DL (8.8-10.2); CARBON DIOXIDE LEVEL 32 MEQ/L (21-32); CHLORIDE LEVEL 100 MEQ/L (98-107); CREATININE FOR GFR 0.94 MG/DL (0.55-1.30); FREE T4 1.22 NG/DL (0.76-1.46); GLOMERULAR FILTRATION RATE > 60.0 (>39); GLUCOSE, FASTING 139 MG/DL (70-100); POTASSIUM SERUM 4.2 MEQ/L (3.5-5.1); SODIUM LEVEL 137 MEQ/L (136-145)
== END ==
LOC: M SFHCCLAY 12:11
PROVIDERS: ATTEND Family Medicine
DX: E11.9 Type 2 diabetes mellitus without complications (principal); R53.82 Chronic fatigue, unspecified; Z79.01 Long term (current) use of anticoagulants; Z23 Encounter for immunization
CPT/HCPCS: 36415; 80048; 83036; 84439; 84443; 85027; 85610; 90682; G0008; G0463

== ENCOUNTER → 2020-08-12 | Outpatient (REF) | payer MEDICARE ==
[2020-08-12 16:29] LABS: INR 2.51; PROTHROMBIN TIME 27.7 SECONDS (12.5-14.3)
== END ==
LOC: M LABDRAWC 15:49
PROVIDERS: ATTEND Internal Medicine Cardiovascular Disease
DX: I48.91 Unspecified atrial fibrillation (principal)

== ENCOUNTER → 2020-09-10 | Outpatient (REF) | payer MEDICARE ==
[2020-09-10 16:27] LABS: INR 2.35; PROTHROMBIN TIME 26.3 SECONDS (12.5-14.3)
== END ==
LOC: M LABDRAWC 15:41
PROVIDERS: ATTEND Internal Medicine Cardiovascular Disease
DX: I48.91 Unspecified atrial fibrillation (principal)

== ENCOUNTER → 2020-09-30 | Outpatient (REF) | payer MEDICARE ==
[2020-09-30 16:25] LABS: INR 1.87; PROTHROMBIN TIME 21.9 SECONDS (12.5-14.3)
== END ==
LOC: M LABDRAWC 15:49
PROVIDERS: ATTEND Internal Medicine Cardiovascular Disease
DX: I48.91 Unspecified atrial fibrillation (principal); Z79.01 Long term (current) use of anticoagulants

== ENCOUNTER → 2020-10-07 | Outpatient (REF) | payer MEDICARE ==
[2020-10-07 17:10] LABS: INR 2.47; PROTHROMBIN TIME 27.3 SECONDS (12.5-14.3)
== END ==
LOC: M LABDRAWC 15:47
PROVIDERS: ATTEND Nurse Practitioner Family
DX: I48.0 Paroxysmal atrial fibrillation (principal)

== ENCOUNTER → 2020-10-27 | Outpatient (REF) | payer MEDICARE ==
[2020-10-27 16:26] LABS: INR 1.59; PROTHROMBIN TIME 19.3 SECONDS (12.5-14.3)
== END ==
LOC: M LABDRAWC 15:49
PROVIDERS: ATTEND Physician Assistant
DX: I48.0 Paroxysmal atrial fibrillation (principal)

== ENCOUNTER → 2020-10-27 | Outpatient (REF) | payer MEDICARE ==
[2020-10-27 16:09] LABS: HEMOGLOBIN 13.6 g/dl (12.0-15.5); MEAN CORPUSCULAR HEMOGLOBIN 30.7 pg (27.0-33.0); MEAN CORPUSCULAR HGB CONC 32.4 g/dl (32.0-36.5); MEAN CORPUSCULAR VOLUME 94.8 fl (80.0-96.0); PLATELET COUNT, AUTOMATED 284 10^3/uL (150-450); RED BLOOD COUNT 4.43 10^6/uL (4.00-5.40); WHITE BLOOD COUNT 6.2 10^3/uL (4.0-10.0)
[2020-10-27 16:19] LABS: BLOOD UREA NITROGEN 15 MG/DL (7-18); CALCIUM LEVEL 9.6 MG/DL (8.8-10.2); CARBON DIOXIDE LEVEL 32 MEQ/L (21-32); CHLORIDE LEVEL 99 MEQ/L (98-107); CREATININE FOR GFR 0.93 MG/DL (0.55-1.30); GLOMERULAR FILTRATION RATE > 60.0 (>39); GLUCOSE, FASTING 138 MG/DL (70-100); POTASSIUM SERUM 4.1 MEQ/L (3.5-5.1); SODIUM LEVEL 137 MEQ/L (136-145)
[2020-10-27 17:49] LABS: HEMOGLOBIN A1c 6.2 %
== END ==
LOC: M SFHCCLAY 11:13
PROVIDERS: ATTEND Family Medicine
DX: M54.42 Lumbago with sciatica, left side (principal); E11.9 Type 2 diabetes mellitus without complications; Z79.01 Long term (current) use of anticoagulants; I48.0 Paroxysmal atrial fibrillation

== ENCOUNTER → 2020-11-10 | Outpatient (CLI) | payer SELFPAY | LOC: M LABSMTC 10:31 | PROVIDERS: ATTEND Pediatrics | DX: Z20.822 Contact with and (suspected) exposure to COVID-19 (principal) ==

== ENCOUNTER → 2020-11-20 | Outpatient (CLI) | payer SELFPAY | LOC: M LABSMTC 09:48 | PROVIDERS: ATTEND Pediatrics | DX: Z20.822 Contact with and (suspected) exposure to COVID-19 (principal) ==

== ENCOUNTER → 2020-12-01 | Outpatient (REF) | payer MEDICARE ==
[2020-12-01 18:05] LABS: INR 2.3; PROTHROMBIN TIME 25.8 SECONDS (12.5-14.3)
== END ==
LOC: M LABDRAWC 15:51
PROVIDERS: ATTEND Physician Assistant
DX: I48.0 Paroxysmal atrial fibrillation (principal)

== ENCOUNTER → 2020-12-08 | Outpatient (REF) | payer MEDICARE ==
[2020-12-08 17:16] LABS: INR 2.68; PROTHROMBIN TIME 29.1 SECONDS (12.5-14.3)
== END ==
LOC: M LABDRAWC 15:58
PROVIDERS: ATTEND Physician Assistant
DX: I48.0 Paroxysmal atrial fibrillation (principal)

== ENCOUNTER → 2020-12-18 | Outpatient (CLI) | payer MEDICARE ==
--- NOTE | 2020-12-18 11:39 | REP ---
INDICATION: SMOKER, LUNG CANCER SCREENING. COMPARISON: Low-dose lung screening chest CT studies dated 10/16/2019 and 04/06/2017 TECHNIQUE: The study is performed without IV contrast. Images are presented with lung windowing only. FINDINGS: There are no lung masses or nodules. There are no infiltrates or pleural effusions. 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 This is unchanged. 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 This is unchanged. IMPRESSION: Category 1 low-dose lung screening chest CT. The probability of malignancy is less than 1%. Depending on risk factors, consider continued follow-up annual low-dose lung screening chest CT. <Electronically signed by Chepe Pollard > 12/18/20 [id number]
== END ==
LOC: M RAD 10:56
PROVIDERS: ATTEND Family Medicine
DX: F17.210 Nicotine dependence, cigarettes, uncomplicated (principal)

== ENCOUNTER → 2020-12-22 | Outpatient (REF) | payer MEDICARE ==
[2020-12-22 16:27] LABS: INR 2.04; PROTHROMBIN TIME 23.5 SECONDS (12.5-14.3)
== END ==
LOC: M LABDRAWC 15:47
PROVIDERS: ATTEND Physician Assistant
DX: I48.0 Paroxysmal atrial fibrillation (principal)

== ENCOUNTER → 2020-12-29 | Outpatient (REF) | payer MEDICARE ==
[2020-12-29 16:32] LABS: INR 1.68; PROTHROMBIN TIME 20.2 SECONDS (12.5-14.3)
== END ==
LOC: M LABDRAWC 15:45
PROVIDERS: ATTEND Physician Assistant
DX: I48.0 Paroxysmal atrial fibrillation (principal)

== ENCOUNTER → 2021-01-08 | Outpatient (REF) | payer MEDICARE ==
[2021-01-08 17:23] LABS: INR 2.68; PROTHROMBIN TIME 29.2 SECONDS (12.5-14.3)
== END ==
LOC: M LABDRAWC 15:58
PROVIDERS: ATTEND Physician Assistant
DX: I48.0 Paroxysmal atrial fibrillation (principal)

== ENCOUNTER → 2021-01-22 | Outpatient (REF) | payer MEDICARE ==
[2021-01-22 16:37] LABS: INR 2.39; PROTHROMBIN TIME 26.6 SECONDS (12.5-14.3)
== END ==
LOC: M LABDRAWC 15:47
PROVIDERS: ATTEND Physician Assistant
DX: I48.0 Paroxysmal atrial fibrillation (principal)

== ENCOUNTER → 2021-02-02 | Outpatient (REF) | payer MEDICARE ==
[2021-02-02 16:43] LABS: INR 2.07; PROTHROMBIN TIME 23.7 SECONDS (12.5-14.3)
== END ==
LOC: M LABDRAWC 15:42
PROVIDERS: ATTEND Physician Assistant
DX: I48.0 Paroxysmal atrial fibrillation (principal)

== ENCOUNTER → 2021-02-10 | Outpatient (REF) | payer MEDICARE ==
[2021-02-10 17:45] LABS: INR 1.8; PROTHROMBIN TIME 21.3 SECONDS (12.5-14.3)
== END ==
LOC: M LABDRAWC 15:39
PROVIDERS: ATTEND Physician Assistant
DX: I48.0 Paroxysmal atrial fibrillation (principal)

== ENCOUNTER → 2021-02-17 | Outpatient (REF) | payer MEDICARE ==
[2021-02-17 16:15] LABS: INR 3.76
== END ==
LOC: M LABDRAWC 15:50
PROVIDERS: ATTEND Physician Assistant
DX: I48.0 Paroxysmal atrial fibrillation (principal)

== ENCOUNTER → 2021-02-24 | Outpatient (REF) | payer MEDICARE ==
[2021-02-24 16:46] LABS: INR 3.69; PROTHROMBIN TIME 37.5 SECONDS (12.5-14.3)
== END ==
LOC: M LABDRAWC 15:51
PROVIDERS: ATTEND Physician Assistant
DX: I48.0 Paroxysmal atrial fibrillation (principal)

== ENCOUNTER → 2021-03-03 | Outpatient (REF) | payer MEDICARE ==
[2021-03-03 18:08] LABS: PROTHROMBIN TIME 48.6 SECONDS (12.5-14.3)
[2021-03-03 21:10] LABS: INR 5.14
== END ==
LOC: M LABDRAWC 15:52
PROVIDERS: ATTEND Nurse Practitioner Family
DX: I48.0 Paroxysmal atrial fibrillation (principal)

== ENCOUNTER → 2021-03-10 | Outpatient (REF) | payer MEDICARE ==
[~2021-03-10] MED LIST changes: +OMEP40CA4 PO; -OMEP40CA97 PO
[2021-03-10 11:59] LABS: INR 1.25
== END ==
LOC: M LABDRAWC 11:12
PROVIDERS: ATTEND Physician Assistant
DX: I48.0 Paroxysmal atrial fibrillation (principal)
CPT/HCPCS: 36415; 85610; G0463

== ENCOUNTER → 2021-03-12 | Outpatient (REF) | payer MEDICARE ==
[~2021-03-12] MED LIST changes: -OMEP40CA4 PO; +OMEP40CA97 PO
[2021-03-12 17:14] LABS: INR 1.61; PROTHROMBIN TIME 19.5 SECONDS (12.5-14.3)
== END ==
LOC: M LABDRAWC 15:37
PROVIDERS: ATTEND Physician Assistant
DX: I48.0 Paroxysmal atrial fibrillation (principal)

== ENCOUNTER → 2021-03-26 | Outpatient (REF) | payer MEDICARE ==
[~2021-03-26] MED LIST changes: +OMEP40CA4 PO; -OMEP40CA97 PO
[2021-03-26 16:23] LABS: INR 2.15; PROTHROMBIN TIME 24.5 SECONDS (12.5-14.3)
== END ==
LOC: M LABDRAWC 15:42
PROVIDERS: ATTEND Physician Assistant
DX: I48.0 Paroxysmal atrial fibrillation (principal)

== ENCOUNTER → 2021-04-02 | Outpatient (REF) | payer MEDICARE ==
[2021-04-02 16:50] LABS: INR 1.6; PROTHROMBIN TIME 19.4 SECONDS (12.5-14.3)
== END ==
LOC: M LABDRAWC 15:45
PROVIDERS: ATTEND Physician Assistant
DX: I48.0 Paroxysmal atrial fibrillation (principal)

== ENCOUNTER → 2021-04-09 | Outpatient (REF) | payer MEDICARE ==
[2021-04-09 17:14] LABS: INR 3.77; PROTHROMBIN TIME 38.1 SECONDS (12.5-14.3)
== END ==
LOC: M LAB REF 15:44
PROVIDERS: ATTEND Physician Assistant
DX: I48.0 Paroxysmal atrial fibrillation (principal)

== ENCOUNTER → 2021-04-16 | Outpatient (REF) | payer MEDICARE ==
[2021-04-16 16:31] LABS: INR 1.84; PROTHROMBIN TIME 21.7 SECONDS (12.5-14.3)
== END ==
LOC: M LABDRAWC 15:53
PROVIDERS: ATTEND Physician Assistant
DX: I48.0 Paroxysmal atrial fibrillation (principal)

== ENCOUNTER → 2021-04-21 | Outpatient (REF) | payer MEDICARE ==
[2021-04-21 17:49] LABS: INR 2.28; PROTHROMBIN TIME 25.6 SECONDS (12.5-14.3)
== END ==
LOC: M LABDRAWC 16:00
PROVIDERS: ATTEND Physician Assistant
DX: I48.0 Paroxysmal atrial fibrillation (principal)

== ENCOUNTER → 2021-05-05 | Outpatient (REF) | payer MEDICARE ==
[~2021-05-05] MED LIST changes: -LISI20TA20 PO; +LISI20TA37 PO
[2021-05-05 18:15] LABS: INR 2.47; PROTHROMBIN TIME 27.1 SECONDS (12.7-14.5)
== END ==
LOC: M LAB REF 17:29
PROVIDERS: ATTEND Physician Assistant
DX: I48.0 Paroxysmal atrial fibrillation (principal)

== ENCOUNTER → 2021-05-13 | Outpatient (REF) | payer MEDICARE ==
[~2021-05-13] MED LIST changes: +LISI20TA20 PO; -LISI20TA37 PO
[2021-05-13 16:19] LABS: INR 2.55; PROTHROMBIN TIME 27.8 SECONDS (12.7-14.5)
== END ==
LOC: M LABDRAWC 15:38
PROVIDERS: ATTEND Physician Assistant
DX: I48.0 Paroxysmal atrial fibrillation (principal)

== ENCOUNTER → 2021-05-20 | Outpatient (REF) | payer MEDICARE ==
[2021-05-20 16:30] LABS: INR 1.88; PROTHROMBIN TIME 22.1 SECONDS (12.7-14.5)
== END ==
LOC: M LABDRAWC 15:54
PROVIDERS: ATTEND Physician Assistant
DX: I48.0 Paroxysmal atrial fibrillation (principal)

== ENCOUNTER → 2021-05-27 | Outpatient (REF) | payer MEDICARE ==
[2021-05-27 16:21] LABS: INR 2.62; PROTHROMBIN TIME 28.4 SECONDS (12.7-14.5)
== END ==
LOC: M LABDRAWC 15:05
PROVIDERS: ATTEND Physician Assistant
DX: I48.0 Paroxysmal atrial fibrillation (principal)

== ENCOUNTER → 2021-06-04 | Outpatient (REF) | payer MEDICARE ==
[2021-06-04 16:55] LABS: INR 2.38; PROTHROMBIN TIME 26.3 SECONDS (12.7-14.5)
== END ==
LOC: M LABDRAWC 16:03
PROVIDERS: ATTEND Physician Assistant
DX: I48.0 Paroxysmal atrial fibrillation (principal)

== ENCOUNTER → 2021-06-11 | Outpatient (REF) | payer MEDICARE ==
[2021-06-11 16:14] LABS: INR 2.71; PROTHROMBIN TIME 29.1 SECONDS (12.7-14.5)
== END ==
LOC: M LABDRAWC 15:35
PROVIDERS: ATTEND Nurse Practitioner Family
DX: I48.0 Paroxysmal atrial fibrillation (principal)

== ENCOUNTER → 2021-07-16 | Outpatient (REF) | payer MEDICARE ==
[2021-07-16 17:30] LABS: INR 2.1
== END ==
LOC: M LABDRAWC 15:50
PROVIDERS: ATTEND Nurse Practitioner Family
DX: I48.91 Unspecified atrial fibrillation (principal)

== ENCOUNTER → 2021-07-16 | Outpatient (REF) | payer MEDICARE ==
[2021-07-16 16:39] LABS: HEMOGLOBIN A1c 6.4 %
[2021-07-16 16:53] LABS: ALBUMIN 3.8 GM/DL (3.2-5.2); ALT/SGPT 23 U/L (12-78); BILIRUBIN,TOTAL 0.5 MG/DL (0.2-1.0); BLOOD UREA NITROGEN 12 MG/DL (7-18); CALCIUM LEVEL 9.4 MG/DL (8.8-10.2); CARBON DIOXIDE LEVEL 30 MEQ/L (21-32); CHLORIDE LEVEL 103 MEQ/L (98-107); CHOLESTEROL LEVEL 136 MG/DL (<200); CHOLESTEROL RISK RATIO 2.566 (<5); CREATININE FOR GFR 0.78 MG/DL (0.55-1.30); GLOMERULAR FILTRATION RATE > 60.0 (>39); GLUCOSE, FASTING 129 MG/DL (70-100); HDL CHOLESTEROL 53 MG/DL (>40); LDL CHOLESTEROL 63 MG/DL (<100); NON-HDL-C 83 MG/DL; POTASSIUM SERUM 4.3 MEQ/L (3.5-5.1); SODIUM LEVEL 140 MEQ/L (136-145); TOTAL PROTEIN 7.2 GM/DL (6.4-8.2); TRIGLYCERIDES LEVEL 98 MG/DL (<150)
== END ==
LOC: M SFHCCLAY 10:29
PROVIDERS: ATTEND Family Medicine
DX: I48.11 Longstanding persistent atrial fibrillation (principal); E11.9 Type 2 diabetes mellitus without complications; I10 Essential (primary) hypertension

== ENCOUNTER → 2021-07-22 | Outpatient (REF) | payer MEDICARE ==
[2021-07-22 16:39] LABS: INR 1.94; PROTHROMBIN TIME 22.6 SECONDS (12.7-14.5)
== END ==
LOC: M LABDRAWC 15:38
PROVIDERS: ATTEND Nurse Practitioner Family
DX: I48.91 Unspecified atrial fibrillation (principal)

== ENCOUNTER → 2021-07-29 | Outpatient (REF) | payer MEDICARE ==
[2021-07-29 16:16] LABS: INR 2.83; PROTHROMBIN TIME 30.1 SECONDS (12.7-14.5)
== END ==
LOC: M LABDRAWC 15:39
PROVIDERS: ATTEND Nurse Practitioner Family
DX: I48.91 Unspecified atrial fibrillation (principal)

== ENCOUNTER → 2021-08-13 | Outpatient (REF) | payer MEDICARE ==
[2021-08-13 16:20] LABS: INR 2.2; PROTHROMBIN TIME 24.8 SECONDS (12.7-14.5)
== END ==
LOC: M LABDRAWC 15:42
PROVIDERS: ATTEND Nurse Practitioner Family
DX: I48.91 Unspecified atrial fibrillation (principal)

== ENCOUNTER → 2021-09-02 | Outpatient (REF) | payer MEDICARE ==
[~2021-09-02] MED LIST changes: -LISI20TA20 PO; +LISI20TA37 PO
[2021-09-02 16:32] LABS: INR 2.47; PROTHROMBIN TIME 27.1 SECONDS (12.7-14.5)
== END ==
LOC: M LABDRAWC 15:46
PROVIDERS: ATTEND Nurse Practitioner Family
DX: I48.91 Unspecified atrial fibrillation (principal)

== ENCOUNTER → 2021-09-09 | Outpatient (REF) | payer MEDICARE ==
[~2021-09-09] MED LIST changes: +LISI20TA20 PO; -LISI20TA37 PO
[2021-09-09 16:25] LABS: INR 2.13; PROTHROMBIN TIME 24.2 SECONDS (12.7-14.5)
== END ==
LOC: M LABDRAWC 15:44
PROVIDERS: ATTEND Nurse Practitioner Family
DX: I48.91 Unspecified atrial fibrillation (principal)

== ENCOUNTER → 2021-09-16 | Outpatient (REF) | payer MEDICARE ==
[2021-09-16 16:47] LABS: INR 2.53; PROTHROMBIN TIME 27.6 SECONDS (12.7-14.5)
== END ==
LOC: M LABDRAWC 15:32
PROVIDERS: ATTEND Nurse Practitioner Family
DX: I48.91 Unspecified atrial fibrillation (principal)

== ENCOUNTER → 2021-10-06 | Outpatient (REF) | payer MEDICARE ==
[2021-10-06 16:28] LABS: INR 3.06; PROTHROMBIN TIME 31.9 SECONDS (12.7-14.5)
== END ==
LOC: M LABDRAWC 15:38
PROVIDERS: ATTEND Nurse Practitioner Family
DX: I48.91 Unspecified atrial fibrillation (principal); Z79.01 Long term (current) use of anticoagulants

== ENCOUNTER → 2021-11-04 | Outpatient (REF) | payer MEDICARE ==
[~2021-11-04] MED LIST changes: -LISI20TA20 PO; +LISI20TA37 PO
[2021-11-04 16:42] LABS: INR 4.02; PROTHROMBIN TIME 39.3 SECONDS (12.7-14.5)
== END ==
LOC: M LABDRAWC 15:52
PROVIDERS: ATTEND Nurse Practitioner Family
DX: I48.91 Unspecified atrial fibrillation (principal)

== ENCOUNTER → 2021-11-11 | Outpatient (REF) | payer MEDICARE ==
[2021-11-11 16:42] LABS: INR 3.39; PROTHROMBIN TIME 34.5 SECONDS (12.7-14.5)
== END ==
LOC: M LABDRAWC 15:38 → M LAB REF 15:38
PROVIDERS: ATTEND Nurse Practitioner Family
DX: I48.91 Unspecified atrial fibrillation (principal)

== ENCOUNTER → 2021-11-18 | Outpatient (REF) | payer MEDICARE ==
[2021-11-18 16:01] LABS: INR 3.11; PROTHROMBIN TIME 32.3 SECONDS (12.7-14.5)
== END ==
LOC: M LABDRAWC 15:26
PROVIDERS: ATTEND Nurse Practitioner Family
DX: I48.91 Unspecified atrial fibrillation (principal)

== ENCOUNTER → 2021-11-18 | Outpatient (REF) | payer MEDICARE ==
[2021-11-18 15:53] LABS: BLOOD UREA NITROGEN 14 MG/DL (7-18); CALCIUM LEVEL 9.3 MG/DL (8.8-10.2); CARBON DIOXIDE LEVEL 31 MEQ/L (21-32); CHLORIDE LEVEL 99 MEQ/L (98-107); CREATININE FOR GFR 0.85 MG/DL (0.55-1.30); GLOMERULAR FILTRATION RATE > 60.0 (>39); GLUCOSE, FASTING 155 MG/DL (70-100); POTASSIUM SERUM 4.1 MEQ/L (3.5-5.1); SODIUM LEVEL 136 MEQ/L (136-145)
[2021-11-18 17:27] LABS: HEMOGLOBIN A1c 6.7 %
== END ==
LOC: M SFHCCLAY 11:14
PROVIDERS: ATTEND Family Medicine
DX: I48.11 Longstanding persistent atrial fibrillation (principal); J44.9 Chronic obstructive pulmonary disease, unspecified; E11.9 Type 2 diabetes mellitus without complications

== ENCOUNTER → 2021-11-25 | Outpatient (REF) | payer MEDICARE ==
[2021-11-25 15:56] LABS: INR 3.7; PROTHROMBIN TIME 36.9 SECONDS (12.7-14.5)
== END ==
LOC: M LABDRAWC 15:27
PROVIDERS: ATTEND Nurse Practitioner Family
DX: I48.91 Unspecified atrial fibrillation (principal)

== ENCOUNTER → 2021-12-02 | Outpatient (REF) | payer MEDICARE ==
[2021-12-02 19:09] LABS: INR 2.78; PROTHROMBIN TIME 29.7 SECONDS (12.7-14.5)
== END ==
LOC: M LABDRAWC 15:39
PROVIDERS: ATTEND Nurse Practitioner Family
DX: I48.91 Unspecified atrial fibrillation (principal)

== ENCOUNTER → 2021-12-10 | Outpatient (REF) | payer MEDICARE ==
[2021-12-10 15:48] LABS: HEMATOCRIT 36.5 % (36.0-47.0); HEMOGLOBIN 11.1 g/dl (12.0-15.5); MEAN CORPUSCULAR HEMOGLOBIN 25.1 pg (27.0-33.0); MEAN CORPUSCULAR HGB CONC 30.4 g/dl (32.0-36.5); MEAN CORPUSCULAR VOLUME 82.6 fl (80.0-96.0); PLATELET COUNT, AUTOMATED 357 10^3/uL (150-450); RED BLOOD COUNT 4.42 10^6/uL (4.00-5.40); WHITE BLOOD COUNT 6.9 10^3/uL (4.0-10.0)
[2021-12-10 16:16] LABS: BLOOD UREA NITROGEN 20 MG/DL (7-18); CALCIUM LEVEL 9.4 MG/DL (8.8-10.2); CARBON DIOXIDE LEVEL 33 MEQ/L (21-32); CHLORIDE LEVEL 98 MEQ/L (98-107); CHOLESTEROL LEVEL 116 MG/DL (<200); CHOLESTEROL RISK RATIO 3.135 (<5); CREATININE FOR GFR 0.96 MG/DL (0.55-1.30); GLOMERULAR FILTRATION RATE > 60.0 (>39); GLUCOSE, FASTING 122 MG/DL (70-100); HDL CHOLESTEROL 37 MG/DL (>40); LDL CHOLESTEROL 58 MG/DL (<100); NON-HDL-C 79 MG/DL; NT-PRO BNP 1129 PG/ML (<450); SODIUM LEVEL 136 MEQ/L (136-145); TRIGLYCERIDES LEVEL 107 MG/DL (<150)
== END ==
LOC: M LABDRAWC 15:31
PROVIDERS: ATTEND Nurse Practitioner Family
DX: I48.91 Unspecified atrial fibrillation (principal); E78.49 Other hyperlipidemia

== ENCOUNTER → 2021-12-24 | Outpatient (REF) | payer MEDICARE ==
[2021-12-24 16:29] LABS: INR 2.58
== END ==
LOC: M LABDRAWC 15:42
PROVIDERS: ATTEND Nurse Practitioner Family
DX: I48.91 Unspecified atrial fibrillation (principal)

== ENCOUNTER → 2021-12-30 | Outpatient (REF) | payer MEDICARE ==
[2021-12-30 16:10] LABS: INR 2.58; PROTHROMBIN TIME 28.1 SECONDS (12.7-14.5)
== END ==
LOC: M LABDRAWC 15:40
PROVIDERS: ATTEND Nurse Practitioner Family
DX: I48.91 Unspecified atrial fibrillation (principal)

== ENCOUNTER → 2022-01-13 | Outpatient (REF) | payer MEDICARE ==
[2022-01-13 16:01] LABS: INR 2.92; PROTHROMBIN TIME 30.8 SECONDS (12.7-14.5)
== END ==
LOC: M LABDRAWC 15:37
PROVIDERS: ATTEND Nurse Practitioner Family
DX: I48.91 Unspecified atrial fibrillation (principal)

== ENCOUNTER → 2022-02-03 | Outpatient (REF) | payer MEDICARE ==
[2022-02-03 16:23] LABS: INR 3.4; PROTHROMBIN TIME 34.6 SECONDS (12.7-14.5)
== END ==
LOC: M LABDRAWC 16:00
PROVIDERS: ATTEND Nurse Practitioner Family
DX: I48.91 Unspecified atrial fibrillation (principal)

== ENCOUNTER → 2022-02-05 | Outpatient (CLI) | payer MEDICARE | LOC: M RAD 10:43 | PROVIDERS: ATTEND Family Medicine | DX: Z12.2 Encounter for screening for malignant neoplasm of respiratory organs (principal); F17.210 Nicotine dependence, cigarettes, uncomplicated ==

== ENCOUNTER → 2022-02-17 | Outpatient (REF) | payer MEDICARE ==
[2022-02-17 16:19] LABS: INR 2.6; PROTHROMBIN TIME 28.2 SECONDS (12.7-14.5)
== END ==
LOC: M LAB REF 15:41 → M LABDRAWC 15:41
PROVIDERS: ATTEND Nurse Practitioner Family
DX: I48.91 Unspecified atrial fibrillation (principal)

== ENCOUNTER → 2022-03-25 | Outpatient (REF) | payer MEDICARE ==
[2022-03-25 16:34] LABS: INR 2.62; PROTHROMBIN TIME 28.4 SECONDS (12.7-14.5)
== END ==
LOC: M LABDRAWC 15:42
PROVIDERS: ATTEND Nurse Practitioner Family
DX: I48.91 Unspecified atrial fibrillation (principal)

== ENCOUNTER → 2022-06-10 | Outpatient (REF) | payer MEDICARE ==
[2022-06-10 18:15] LABS: HEMATOCRIT 37.3 % (36.0-47.0); MEAN CORPUSCULAR HEMOGLOBIN 24.4 pg (27.0-33.0); MEAN CORPUSCULAR HGB CONC 29.5 g/dl (32.0-36.5); MEAN CORPUSCULAR VOLUME 82.9 fl (80.0-96.0); PLATELET COUNT, AUTOMATED 293 10^3/uL (150-450); WHITE BLOOD COUNT 5.6 10^3/uL (4.0-10.0)
[2022-06-10 18:31] LABS: ALBUMIN 3.8 GM/DL (3.2-5.2); ALT/SGPT 19 U/L (12-78); BILIRUBIN,TOTAL 0.5 MG/DL (0.2-1.0); BLOOD UREA NITROGEN 13 MG/DL (7-18); CALCIUM LEVEL 9.3 MG/DL (8.8-10.2); CARBON DIOXIDE LEVEL 32 MEQ/L (21-32); CHLORIDE LEVEL 101 MEQ/L (98-107); CHOLESTEROL LEVEL 111 MG/DL (<200); CHOLESTEROL RISK RATIO 2.775 (<5); CREATININE FOR GFR 0.75 MG/DL (0.55-1.30); GLOMERULAR FILTRATION RATE > 60.0 (>39); GLUCOSE, FASTING 88 MG/DL (70-100); HDL CHOLESTEROL 40 MG/DL (>40); LDL CHOLESTEROL 53 MG/DL (<100); NON-HDL-C 71 MG/DL; POTASSIUM SERUM 4.9 MEQ/L (3.5-5.1); SODIUM LEVEL 135 MEQ/L (136-145); TOTAL PROTEIN 6.8 GM/DL (6.4-8.2); TRIGLYCERIDES LEVEL 89 MG/DL (<150)
[2022-06-10 18:50] LABS: HEMOGLOBIN A1c 6.8 %
== END ==
LOC: M SFHCCLAY 12:11
PROVIDERS: ATTEND Family Medicine
DX: I48.11 Longstanding persistent atrial fibrillation (principal); E11.51 Type 2 diabetes mellitus with diabetic peripheral angiopathy without gangrene; I10 Essential (primary) hypertension

== ENCOUNTER → 2022-06-10 | Outpatient (REF) | payer MEDICARE ==
[2022-06-10 18:16] LABS: INR 3.27; PROTHROMBIN TIME 33.6 SECONDS (12.7-14.5)
== END ==
LOC: M LABDRAWC 16:50
PROVIDERS: ATTEND Nurse Practitioner Family
DX: I48.91 Unspecified atrial fibrillation (principal)

== ENCOUNTER → 2022-07-29 | Outpatient (REF) | payer MEDICARE ==
[2022-07-29 18:26] LABS: PROTHROMBIN TIME 31.6 SECONDS (12.5-14.5)
== END ==
LOC: M LABDRAWC 17:11
PROVIDERS: ATTEND Internal Medicine Cardiovascular Disease
DX: I48.91 Unspecified atrial fibrillation (principal)

== ENCOUNTER → 2022-09-08 | Outpatient (REF) | payer MEDICARE ==
[2022-09-08 17:58] LABS: INR 4.3; PROTHROMBIN TIME 41.9 SECONDS (12.5-14.5)
== END ==
LOC: M LABDRAWC 17:29
PROVIDERS: ATTEND Internal Medicine Cardiovascular Disease
DX: I48.91 Unspecified atrial fibrillation (principal)

== ENCOUNTER → 2022-09-13 | Outpatient (CLI) | payer MEDICARE | LOC: M RAD 14:13 | PROVIDERS: ATTEND Physician Assistant | DX: I65.23 Occlusion and stenosis of bilateral carotid arteries (principal) ==

== ENCOUNTER → 2022-09-16 | Outpatient (REF) | payer MEDICARE ==
[2022-09-16 17:36] LABS: BASO % 0.5 % (0.0-1.0); EOS # 0.1 10^3/uL (0.0-0.5); EOS % 1.5 % (0.0-3.0); HEMATOCRIT 38.6 % (36.0-47.0); HEMOGLOBIN 11.3 g/dl (12.0-15.5); LYMPH # 0.5 10^3/uL (1.5-5.0); LYMPH % 8.4 % (24.0-44.0); MEAN CORPUSCULAR HEMOGLOBIN 25.1 pg (27.0-33.0); MEAN CORPUSCULAR HGB CONC 29.3 g/dl (32.0-36.5); MEAN CORPUSCULAR VOLUME 85.8 fl (80.0-96.0); MONO # 0.7 10^3/uL (0.0-0.8); MONO % 11.8 % (2.0-8.0); NEUTROPHILS # 4.3 10^3/uL (1.5-8.5); NEUTROPHILS % 77.4 % (36.0-66.0); PLATELET COUNT, AUTOMATED 244 10^3/uL (150-450); WHITE BLOOD COUNT 5.5 10^3/uL (4.0-10.0)
[2022-09-16 17:40] LABS: HEMOGLOBIN A1c 6.3 % (4.0-6.0)
[2022-09-16 17:43] LABS: ALBUMIN 3.4 G/DL (3.2-5.2); ALKALINE PHOSPHATASE 57 U/L (46-116); ALT/SGPT 14 U/L (7.0-40); AST/SGOT 21 U/L (<34); BILIRUBIN,TOTAL 0.9 MG/DL (0.3-1.2); BLOOD UREA NITROGEN 14 MG/DL (9-23); CALCIUM LEVEL 9.3 MG/DL (8.3-10.6); CARBON DIOXIDE LEVEL 27 MMOL/L (20-31); CHLORIDE LEVEL 105 MMOL/L (98-107); CHOLESTEROL LEVEL 88 MG/DL (<200); CHOLESTEROL RISK RATIO 3.23 (<5); CREATININE FOR GFR 0.65 MG/DL (0.55-1.30); GLOMERULAR FILTRATION RATE > 60.0 (>39); GLUCOSE, FASTING 94 MG/DL (74-106); HDL CHOLESTEROL 27.2 MG/DL (>40); NON-HDL-C 61 MG/DL; POTASSIUM SERUM 4.5 MMOL/L (3.5-5.1); SODIUM LEVEL 142 MMOL/L (136-145); TOTAL PROTEIN 6.6 G/DL (5.7-8.2); TRIGLYCERIDES LEVEL 64 MG/DL (<150)
== END ==
LOC: M SFHCCLAY 11:42
PROVIDERS: ATTEND Family Medicine
DX: J44.9 Chronic obstructive pulmonary disease, unspecified (principal); I10 Essential (primary) hypertension; I65.21 Occlusion and stenosis of right carotid artery; I27.81 Cor pulmonale (chronic); E11.9 Type 2 diabetes mellitus without complications

== ENCOUNTER → 2022-09-16 | Outpatient (REF) | payer MEDICARE ==
[2022-09-16 17:43] LABS: INR 2.06; PROTHROMBIN TIME 23.6 SECONDS (12.5-14.5)
== END ==
LOC: M LABDRAWC 17:04
PROVIDERS: ATTEND Internal Medicine Cardiovascular Disease
DX: J44.9 Chronic obstructive pulmonary disease, unspecified (principal); I10 Essential (primary) hypertension; I65.21 Occlusion and stenosis of right carotid artery; I27.81 Cor pulmonale (chronic); E11.9 Type 2 diabetes mellitus without complications

== ENCOUNTER → 2022-09-23 | Outpatient (REF) | payer MEDICARE ==
[2022-09-23 16:32] LABS: INR 2.38; PROTHROMBIN TIME 26.4 SECONDS (12.5-14.5)
== END ==
LOC: M LABDRAWC 15:33
PROVIDERS: ATTEND Internal Medicine Cardiovascular Disease
DX: I48.91 Unspecified atrial fibrillation (principal)

== ENCOUNTER → 2022-09-29 | Outpatient (REF) | payer MEDICARE ==
[2022-09-29 17:43] LABS: INR 3.28; PROTHROMBIN TIME 33.9 SECONDS (12.5-14.5)
== END ==
LOC: M LABDRAWC 16:39
PROVIDERS: ATTEND Internal Medicine Cardiovascular Disease
DX: I48.91 Unspecified atrial fibrillation (principal)

== ENCOUNTER → 2022-10-06 | Outpatient (REF) | payer MEDICARE ==
[2022-10-06 19:07] LABS: INR 2.62; PROTHROMBIN TIME 28.4 SECONDS (12.5-14.5)
== END ==
LOC: M LABDRAWC 17:05
PROVIDERS: ATTEND Internal Medicine Cardiovascular Disease
DX: I48.91 Unspecified atrial fibrillation (principal)

== ENCOUNTER → 2022-10-14 | Outpatient (CLI) | payer MEDICARE | LOC: M PLARAD 10:45 | PROVIDERS: ATTEND Family Medicine | DX: I73.9 Peripheral vascular disease, unspecified (principal); I65.23 Occlusion and stenosis of bilateral carotid arteries ==

== ENCOUNTER → 2022-10-20 | Outpatient (REF) | payer MEDICARE ==
[2022-10-20 18:16] LABS: INR 2.12; PROTHROMBIN TIME 24.1 SECONDS (12.5-14.5)
== END ==
LOC: M LABDRAWC 17:13
PROVIDERS: ATTEND Internal Medicine Cardiovascular Disease
DX: I48.91 Unspecified atrial fibrillation (principal)

== ENCOUNTER → 2022-10-25 | Outpatient (CLI) | payer MEDICARE | LOC: M CARPUL 09:10 | PROVIDERS: ATTEND Family Medicine | DX: J44.9 Chronic obstructive pulmonary disease, unspecified (principal) ==

== ENCOUNTER → 2022-10-27 | Outpatient (REF) | payer MEDICARE ==
[2022-10-27 17:51] LABS: INR 1.85; PROTHROMBIN TIME 21.7 SECONDS (12.5-14.5)
== END ==
LOC: M LABDRAWC 16:48
PROVIDERS: ATTEND Internal Medicine Cardiovascular Disease
DX: I48.91 Unspecified atrial fibrillation (principal)

== ENCOUNTER → 2022-11-17 | Outpatient (REF) | payer MEDICARE ==
[2022-11-17 18:15] LABS: INR 2.27; PROTHROMBIN TIME 25.4 SECONDS (12.5-14.5)
== END ==
LOC: M LABDRAWC 17:11
PROVIDERS: ATTEND Internal Medicine Cardiovascular Disease
DX: I48.91 Unspecified atrial fibrillation (principal)

== ENCOUNTER → 2022-11-24 | Outpatient (REF) | payer MEDICARE ==
[2022-11-24 18:00] LABS: INR 2.7; PROTHROMBIN TIME 29.1 SECONDS (12.5-14.5)
== END ==
LOC: M LABDRAWC 16:51
PROVIDERS: ATTEND Internal Medicine Cardiovascular Disease
DX: I48.91 Unspecified atrial fibrillation (principal)

== ENCOUNTER → 2022-12-01 | Outpatient (REF) | payer MEDICARE ==
[2022-12-01 17:26] LABS: INR 2.76; PROTHROMBIN TIME 29.6 SECONDS (12.5-14.5)
== END ==
LOC: M LABDRAWC 16:50
PROVIDERS: ATTEND Internal Medicine Cardiovascular Disease
DX: I48.91 Unspecified atrial fibrillation (principal)

== ENCOUNTER → 2022-12-20 | Outpatient (REF) | payer MEDICARE ==
[2022-12-20 19:54] LABS: INR 1.32; PROTHROMBIN TIME 16.6 SECONDS (12.5-14.5)
== END ==
LOC: M LABDRAWC 18:02
PROVIDERS: ATTEND Internal Medicine Cardiovascular Disease
DX: I48.91 Unspecified atrial fibrillation (principal)

== ENCOUNTER → 2022-12-24 | Outpatient (REF) | payer MEDICARE ==
[2022-12-24 13:22] LABS: INR 1.93; PROTHROMBIN TIME 22.4 SECONDS (12.5-14.5)
== END ==
LOC: M LABDRAWC 11:02
PROVIDERS: ATTEND Internal Medicine Cardiovascular Disease
DX: I48.91 Unspecified atrial fibrillation (principal)

== ENCOUNTER → 2022-12-30 | Outpatient (REF) | payer MEDICARE ==
[2022-12-30 19:12] LABS: INR 3.31; PROTHROMBIN TIME 34.1 SECONDS (12.5-14.5)
== END ==
LOC: M LABDRAWC 17:08
PROVIDERS: ATTEND Internal Medicine Cardiovascular Disease
DX: I48.91 Unspecified atrial fibrillation (principal)

== ENCOUNTER → 2023-01-04 | Outpatient (REF) | payer MEDICARE ==
[2023-01-04 19:42] LABS: BASO # 0.1 10^3/uL (0.0-0.2); EOS # 0.1 10^3/uL (0.0-0.5); HEMATOCRIT 32.6 % (36.0-47.0); HEMOGLOBIN 9.7 g/dl (12.0-15.5); LYMPH # 0.5 10^3/uL (1.5-5.0); LYMPH % 7.9 % (24.0-44.0); MEAN CORPUSCULAR HEMOGLOBIN 25.3 pg (27.0-33.0); MEAN CORPUSCULAR HGB CONC 29.8 g/dl (32.0-36.5); MEAN CORPUSCULAR VOLUME 85.1 fl (80.0-96.0); MONO # 0.6 10^3/uL (0.0-0.8); MONO % 10.8 % (2.0-8.0); NEUTROPHILS # 4.7 10^3/uL (1.5-8.5); NEUTROPHILS % 78.8 % (36.0-66.0); PLATELET COUNT, AUTOMATED 298 10^3/uL (150-450); RED BLOOD COUNT 3.83 10^6/uL (4.00-5.40); WHITE BLOOD COUNT 5.9 10^3/uL (4.0-10.0)
[2023-01-04 20:06] LABS: BLOOD UREA NITROGEN 14 MG/DL (9-23); CALCIUM LEVEL 9.1 MG/DL (8.3-10.6); CARBON DIOXIDE LEVEL 31 MMOL/L (20-31); CHLORIDE LEVEL 101 MMOL/L (98-107); CREATININE FOR GFR 0.77 MG/DL (0.55-1.30); GLOMERULAR FILTRATION RATE > 60.0 (>39); GLUCOSE, FASTING 116 MG/DL (74-106); POTASSIUM SERUM 4.6 MMOL/L (3.5-5.1); SODIUM LEVEL 135 MMOL/L (136-145)
[2023-01-04 20:22] LABS: HEMOGLOBIN A1c 7.2 % (4.0-6.0)
[2023-01-05 07:19] LABS: IRON (FE) 18 UG/DL (50-170)
[2023-01-05 07:20] LABS: PERCENT SATURATION 3.6 % (13.2-45.0); TOTAL IRON BINDING CAPACITY 498 UG/DL (250-425)
== END ==
LOC: M SFHCCLAY 12:06
PROVIDERS: ATTEND Family Medicine
DX: J44.9 Chronic obstructive pulmonary disease, unspecified (principal); E11.9 Type 2 diabetes mellitus without complications

== ENCOUNTER → 2023-01-06 | Outpatient (REF) | payer MEDICARE ==
[2023-01-06 18:23] LABS: INR 3.53; PROTHROMBIN TIME 35.9 SECONDS (12.5-14.5)
== END ==
LOC: M LABDRAWC 17:12
PROVIDERS: ATTEND Internal Medicine Cardiovascular Disease
DX: Z95.4 Presence of other heart-valve replacement (principal)

== ENCOUNTER → 2023-01-07 | Outpatient (REF) | payer MEDICARE ==
[2023-01-07 13:15] LABS: CREATININE, URINE 31.5 MG/DL
== END ==
LOC: M SFHCCLAY 11:48
PROVIDERS: ATTEND Family Medicine
DX: E11.9 Type 2 diabetes mellitus without complications (principal); J44.9 Chronic obstructive pulmonary disease, unspecified

== ENCOUNTER → 2023-01-12 | Outpatient (REF) | payer MEDICARE ==
[2023-01-12 18:02] LABS: INR 3.52; PROTHROMBIN TIME 35.8 SECONDS (12.5-14.5)
== END ==
LOC: M LABDRAWC 17:07
PROVIDERS: ATTEND Internal Medicine Cardiovascular Disease
DX: Z95.4 Presence of other heart-valve replacement (principal)

== ENCOUNTER → 2023-01-19 | Outpatient (REF) | payer MEDICARE ==
[2023-01-19 17:42] LABS: INR 1.39; PROTHROMBIN TIME 17.3 SECONDS (12.5-14.5)
== END ==
LOC: M LABDRAWC 16:48
PROVIDERS: ATTEND Internal Medicine Cardiovascular Disease
DX: Z95.4 Presence of other heart-valve replacement (principal)

== ENCOUNTER → 2023-01-26 | Outpatient (REF) | payer MEDICARE ==
[2023-01-26 18:13] LABS: INR 3.03; PROTHROMBIN TIME 31.9 SECONDS (12.5-14.5)
== END ==
LOC: M LABDRAWC 16:46
PROVIDERS: ATTEND Internal Medicine Cardiovascular Disease
DX: Z79.01 Long term (current) use of anticoagulants (principal); Z95.2 Presence of prosthetic heart valve

== ENCOUNTER → 2023-02-02 | Outpatient (REF) | payer MEDICARE ==
[2023-02-02 18:43] LABS: INR 1.51; PROTHROMBIN TIME 18.5 SECONDS (12.5-14.5)
== END ==
LOC: M LABDRAWC 17:09
PROVIDERS: ATTEND Internal Medicine Cardiovascular Disease
DX: Z79.01 Long term (current) use of anticoagulants (principal); Z95.2 Presence of prosthetic heart valve

== ENCOUNTER → 2023-02-09 | Outpatient (REF) | payer MEDICARE ==
[2023-02-09 18:13] LABS: INR 3.58; PROTHROMBIN TIME 36.3 SECONDS (12.5-14.5)
== END ==
LOC: M LABDRAWC 17:18
PROVIDERS: ATTEND Internal Medicine Cardiovascular Disease
DX: Z95.4 Presence of other heart-valve replacement (principal)

== ENCOUNTER → 2023-02-16 | Outpatient (REF) | payer MEDICARE ==
[2023-02-16 18:10] LABS: INR 1.7; PROTHROMBIN TIME 20.3 SECONDS (12.5-14.5)
== END ==
LOC: M LABDRAWC 17:06
PROVIDERS: ATTEND Internal Medicine Cardiovascular Disease
DX: Z95.4 Presence of other heart-valve replacement (principal)

== ENCOUNTER → 2023-02-23 | Outpatient (REF) | payer MEDICARE ==
[2023-02-23 18:31] LABS: INR 3.72; PROTHROMBIN TIME 37.4 SECONDS (12.5-14.5)
== END ==
LOC: M LABDRAWC 17:36
PROVIDERS: ATTEND Internal Medicine Cardiovascular Disease
DX: Z95.2 Presence of prosthetic heart valve (principal)

== ENCOUNTER → 2023-03-02 | Outpatient (REF) | payer MEDICARE ==
[2023-03-02 18:09] LABS: INR 4.93; PROTHROMBIN TIME 46.6 SECONDS (12.5-14.5)
== END ==
LOC: M LABDRAWC 16:53
PROVIDERS: ATTEND Internal Medicine Cardiovascular Disease
DX: Z95.2 Presence of prosthetic heart valve (principal)

== ENCOUNTER → 2023-03-08 | Outpatient (REF) | payer MEDICARE | LOC: M SFHCCLAY 12:10 | PROVIDERS: ATTEND Family Medicine | DX: R53.83 Other fatigue (principal) ==

== ENCOUNTER → 2023-03-17 | Outpatient (REF) | payer MEDICARE ==
[2023-03-17 17:45] LABS: INR 3.73; PROTHROMBIN TIME 37.5 SECONDS (12.5-14.5)
== END ==
LOC: M LABDRAWC 16:46
PROVIDERS: ATTEND Internal Medicine Cardiovascular Disease
DX: Z95.2 Presence of prosthetic heart valve (principal)

== ENCOUNTER → 2023-03-23 | Outpatient (CLI) | payer MEDICARE ==
[~2023-03-23] VITALS: Ht 160 cm; Wt 68.6 kg
[~2023-03-23] MED LIST changes: +IRON SUCROSE 25 MG in NS 23.75 ML IV ONE; +IRON SUCROSE 475 MG in NS 250 ML IV ONE
[2023-03-23 09:35] VITALS: BP 126/55; O2SAT 93
[2023-03-23 11:00] VITALS: BP 122/68; O2SAT 94
[2023-03-23 14:45] VITALS: BP 131/67; O2SAT 92
== END ==
LOC: M INFU 09:13
PROVIDERS: ATTEND Family Medicine
DX: D50.9 Iron deficiency anemia, unspecified (principal)
CPT/HCPCS: 96365; 96366; J1756

== ENCOUNTER → 2023-03-25 | Outpatient (REF) | payer MEDICARE ==
[~2023-03-25] MED LIST changes: -IRON SUCROSE 25 MG in NS 23.75 ML IV ONE; -IRON SUCROSE 475 MG in NS 250 ML IV ONE
[2023-03-25 18:12] LABS: INR 4.97; PROTHROMBIN TIME 46.9 SECONDS (12.5-14.5)
== END ==
LOC: M LAB REF 16:42 → M LABWUC 16:42
PROVIDERS: ATTEND Internal Medicine Cardiovascular Disease
DX: Z95.2 Presence of prosthetic heart valve (principal)

== ENCOUNTER → 2023-04-06 | Outpatient (CLI) | payer MEDICARE | LOC: M CLY 14:04 | PROVIDERS: ATTEND Family Medicine | DX: R06.02 Shortness of breath (principal) ==

== ENCOUNTER → 2023-04-13 | Outpatient (REF) | payer MEDICARE ==
[2023-04-13 17:35] LABS: BASO % 0.7 % (0.0-1.0); EOS # 0.1 10^3/uL (0.0-0.5); EOS % 1.4 % (0.0-3.0); HEMATOCRIT 35.1 % (36.0-47.0); HEMOGLOBIN 10.4 g/dl (12.0-15.5); LYMPH # 0.4 10^3/uL (1.5-5.0); LYMPH % 6.7 % (24.0-44.0); MEAN CORPUSCULAR HEMOGLOBIN 23.3 pg (27.0-33.0); MEAN CORPUSCULAR HGB CONC 29.6 g/dl (32.0-36.5); MEAN CORPUSCULAR VOLUME 78.7 fl (80.0-96.0); MONO # 0.6 10^3/uL (0.0-0.8); MONO % 10.1 % (2.0-8.0); NEUTROPHILS # 4.5 10^3/uL (1.5-8.5); NEUTROPHILS % 80.7 % (36.0-66.0); PLATELET COUNT, AUTOMATED 258 10^3/uL (150-450); RED BLOOD COUNT 4.46 10^6/uL (4.00-5.40); WHITE BLOOD COUNT 5.6 10^3/uL (4.0-10.0)
[2023-04-13 18:03] LABS: TOTAL IRON BINDING CAPACITY 364 UG/DL (250-425)
[2023-04-13 18:04] LABS: BLOOD UREA NITROGEN 20 MG/DL (9-23); CALCIUM LEVEL 9.8 MG/DL (8.3-10.6); CARBON DIOXIDE LEVEL 35 MMOL/L (20-31); CHLORIDE LEVEL 94 MMOL/L (98-107); CREATININE FOR GFR 0.96 MG/DL (0.55-1.30); GLOMERULAR FILTRATION RATE > 60.0 (>39); GLUCOSE, FASTING 108 MG/DL (74-106); IRON (FE) 30 UG/DL (50-170); PERCENT SATURATION 8.2 % (13.2-45.0); POTASSIUM SERUM 4.2 MMOL/L (3.5-5.1); SODIUM LEVEL 136 MMOL/L (136-145)
[2023-04-13 18:06] LABS: THYROID STIMULATING HORMONE 3.557 uIU/ML (0.55-4.78)
[2023-04-13 18:07] LABS: FREE T4 1.28 NG/DL (0.89-1.76)
== END ==
LOC: M SFHCCLAY 10:54
PROVIDERS: ATTEND Family Medicine
DX: D50.0 Iron deficiency anemia secondary to blood loss (chronic) (principal); E11.9 Type 2 diabetes mellitus without complications; J44.9 Chronic obstructive pulmonary disease, unspecified; I48.11 Longstanding persistent atrial fibrillation

== ENCOUNTER 2023-05-05 07:40 | Outpatient (CLI) | payer MEDICARE ==
[~2023-05-05] VITALS: Ht 160 cm; Wt 70.0 kg
[2023-05-05 08:02] VITALS: BP 91/59; O2SAT 93
[2023-05-05] MEDS ORDERED: IRON SUCROSE 475 MG in NS 250 ML IV ONE (08:15)
[2023-05-05] MEDS ORDERED: IRON SUCROSE 25 MG in NS 23.75 ML IV ONE (08:15)
[2023-05-05 09:00] VITALS: BP 102/64; O2SAT 92
[2023-05-05 11:00] VITALS: BP 97/61; O2SAT 93
[2023-05-05 13:00] VITALS: BP 107/68; O2SAT 92
[2023-05-05 14:00] VITALS: BP 92/52; O2SAT 94
== END 2023-05-05 13:55 | disposition home or self-care (01) ==
LOC: M INFU 07:40
PROVIDERS: ATTEND Family Medicine
DX: D50.9 Iron deficiency anemia, unspecified (principal)
CPT/HCPCS: 96365; 96366; J1756

== ENCOUNTER → 2023-05-06 | Outpatient (CLI) | payer MEDICARE | LOC: M RAD 12:59 | PROVIDERS: ATTEND Surgery Vascular Surgery | DX: I65.23 Occlusion and stenosis of bilateral carotid arteries (principal) ==

== ENCOUNTER → 2023-05-19 | Outpatient (REF) | payer MEDICARE ==
[2023-05-19 18:57] LABS: HEMATOCRIT 37.3 % (36.0-47.0); HEMOGLOBIN 11.1 g/dl (12.0-15.5); MEAN CORPUSCULAR HEMOGLOBIN 24.8 pg (27.0-33.0); MEAN CORPUSCULAR HGB CONC 29.8 g/dl (32.0-36.5); MEAN CORPUSCULAR VOLUME 83.3 fl (80.0-96.0); PLATELET COUNT, AUTOMATED 256 10^3/uL (150-450); RED BLOOD COUNT 4.48 10^6/uL (4.00-5.40); WHITE BLOOD COUNT 5.4 10^3/uL (4.0-10.0)
[2023-05-19 19:05] LABS: CALCIUM LEVEL 9.5 MG/DL (8.3-10.6); CREATININE FOR GFR 1.06 MG/DL (0.55-1.30); GLOMERULAR FILTRATION RATE 53.7 (>39); PERCENT SATURATION 10.2 % (13.2-45.0); POTASSIUM SERUM 4.7 MMOL/L (3.5-5.1)
== END ==
LOC: M SFHCCLAY 13:45
PROVIDERS: ATTEND Family Medicine
DX: I48.11 Longstanding persistent atrial fibrillation (principal); I10 Essential (primary) hypertension; D50.0 Iron deficiency anemia secondary to blood loss (chronic); J44.9 Chronic obstructive pulmonary disease, unspecified; E11.51 Type 2 diabetes mellitus with diabetic peripheral angiopathy without gangrene

== ENCOUNTER → 2023-05-30 | Outpatient (CLI) | payer MEDICARE | LOC: M CARPUL 14:15 | PROVIDERS: ATTEND Nurse Practitioner Family | DX: Z95.2 Presence of prosthetic heart valve (principal) ==